=== PATIENT | male | born 1965 | race Caucasian/White ===

== ENCOUNTER 2020-01-14 21:40 | Inpatient (IN) | payer MEDICARE, MEDICAID ==
[~2020-01-14] VITALS: Ht 170.1 cm; Wt 91.4 kg
[2020-01-14 21:46] VITALS: BP 115/77
[2020-01-14 22:13] LABS: BASO % 0.4 % (0.0-1.0); EOS # 0.3 10*3/uL (0.0-0.4); EOS % 4.2 % (1.0-4.0); HEMATOCRIT 35.6 % (42.0-52.0); LYMPH # 2.1 10*3/uL (1.3-4.4); LYMPH % 25.3 % (27.0-41.0); MEAN CELL VOLUME 98.1 fl (80.0-94.0); MEAN CORPUSCULAR HGB 28.7 pg (27.0-31.0); MEAN CORPUSCULAR HGB CONC 29.2 g/dl (33.0-37.0); MEAN PLATELET VOLUME 10.6 fl (9.6-12.3); MONO # 0.8 10*3/uL (0.1-1.0); MONO % 9.6 % (3.0-9.0); NEUT # 4.9 10*3/uL (2.3-7.9); NEUT % 60.4 % (47.0-73.0); PLATELET COUNT AUTOMATED 247 10*3/uL (130-400); RED BLOOD COUNT 3.63 10*6/uL (4.50-5.90); RED CELL DISTRI WIDTH 13.4 % (0-14.5); WHITE BLOOD COUNT 8.1 10*3/uL (4.8-10.8)
[2020-01-14 22:23] LABS: INTERNATIONAL NORM RATIO 0.9 (2.0-3.5)
[2020-01-14 22:30] LABS: ALBUMIN 3.3 gm/dl (3.1-4.5); ALKALINE PHOSPHATASE 71 U/L (45-117); BUN 12 mg/dl (7-24); CHLORIDE 95 mmol/L (98-107); CREATININE 0.65 mg/dL (0.70-1.30); POTASSIUM 4.4 mmol/L (3.5-5.1); SGOT/AST 28 IU/L (3-35); SGPT/ALT 32 U/L (12-78); SODIUM 140 mmol/L (136-145); TOTAL PROTEIN 6.7 gm/dL (6.4-8.2)
[2020-01-14 22:33] LABS: TROPONIN I < 0.015 ng/ml (<0.045)
[2020-01-14 23:05] VITALS: BP 102/75
[2020-01-15] MEDS ORDERED: ABILIFY10 MG PO (01:02)
[2020-01-15] MEDS ORDERED: ATOMOXETINE HC100 MG PO (01:03)
[2020-01-15] MEDS ORDERED: LIPITOR20 MG PO (01:03)
[2020-01-15 01:04] LABS: ABG BASE EXCESS 14.6 mmol/L (-2.0-2.0); ARTERIAL BLOOD GAS PH 7.304 (7.35-7.45)
[2020-01-15] MEDS ORDERED: BUDESONIDE-FO10.2 G1 INH (01:04)
[2020-01-15] MEDS ORDERED: CELEXA40 MG PO (01:05)
[2020-01-15] MEDS ORDERED: FLONASE ALLERG9.9 ML NAS (01:06)
[2020-01-15] MEDS ORDERED: MELATONIN10 M1 PO (01:08)
[2020-01-15] MEDS ORDERED: TOPROL XL50 M1 PO (01:09)
[2020-01-15] MEDS ORDERED: MUCINEX1200 M1 PO (01:09)
[2020-01-15] MEDS ORDERED: SPIRIVA RESPIMAT4 GM INH (01:10)
[2020-01-15] MEDS ORDERED: TYLENOL325 M1 PO (01:12)
[2020-01-15 01:57] VITALS: BP 94/71
[2020-01-15 06:32] LABS: HEMATOCRIT 35.2 % (42.0-52.0); MEAN CELL VOLUME 97.8 fl (80.0-94.0); MEAN CORPUSCULAR HGB 28.6 pg (27.0-31.0); MEAN CORPUSCULAR HGB CONC 29.3 g/dl (33.0-37.0); MEAN PLATELET VOLUME 10.8 fl (9.6-12.3); PLATELET COUNT AUTOMATED 246 10*3/uL (130-400); RED CELL DISTRI WIDTH 13.6 % (0-14.5); WHITE BLOOD COUNT 6.3 10*3/uL (4.8-10.8)
[2020-01-15 07:01] LABS: BUN 12 mg/dl (7-24); CHLORIDE 92 mmol/L (98-107); CREATININE 0.74 mg/dL (0.70-1.30); POTASSIUM 4.4 mmol/L (3.5-5.1); SODIUM 137 mmol/L (136-145)
[2020-01-15 07:20] LABS: PLATELET SUFFICIENCY NORMAL (NORMAL); TOTAL CELLS COUNTED 100 #CELLS
[2020-01-15 08:00] VITALS: BP 100/67; BP 120/71
[2020-01-15 10:35] LABS: ABG BASE EXCESS 13.8 mmol/L (-2.0-2.0); ARTERIAL BLOOD GAS PH 7.346 (7.35-7.45)
[2020-01-15 12:00] VITALS: BP 120/83
[2020-01-15 16:00] VITALS: BP 121/66
[2020-01-15 20:00] VITALS: BP 100/44
[2020-01-16] VITALS: BP 90/56
[2020-01-16 06:07] LABS: BASO % 0.2 % (0.0-1.0); EOS % 0.3 % (1.0-4.0); LYMPH # 2.1 10*3/uL (1.3-4.4); LYMPH % 17.9 % (27.0-41.0); MEAN CELL VOLUME 98.8 fl (80.0-94.0); MEAN CORPUSCULAR HGB 28.2 pg (27.0-31.0); MEAN CORPUSCULAR HGB CONC 28.5 g/dl (33.0-37.0); MEAN PLATELET VOLUME 11.2 fl (9.6-12.3); MONO # 1.2 10*3/uL (0.1-1.0); MONO % 10.2 % (3.0-9.0); NEUT # 8.4 10*3/uL (2.3-7.9); PLATELET COUNT AUTOMATED 257 10*3/uL (130-400); RED BLOOD COUNT 3.44 10*6/uL (4.50-5.90); RED CELL DISTRI WIDTH 13.7 % (0-14.5); WHITE BLOOD COUNT 11.8 10*3/uL (4.8-10.8)
[2020-01-16 06:26] LABS: BUN 15 mg/dl (7-24); CHLORIDE 95 mmol/L (98-107); CREATININE 0.63 mg/dL (0.70-1.30); POTASSIUM 4.3 mmol/L (3.5-5.1); SODIUM 141 mmol/L (136-145)
[2020-01-16 10:22] LABS: ABG BASE EXCESS 15.7 mmol/L (-2.0-2.0); ARTERIAL BLOOD GAS PH 7.319 (7.35-7.45)
[2020-01-16] MEDS ORDERED: PREDNISONE10 MG PO (11:12)
[2020-01-16 12:00] VITALS: BP 125/75
== END 2020-01-16 13:22 | DRG 189 ==
LOC: ED 21:40 → EDHOLD 23:39 → 5E 23:39
PROVIDERS: Emergency Medicine; Family Medicine; Internal Medicine; Student in an Organized Health Care Education/Training Program; ADMIT Internal Medicine; ATTEND Internal Medicine
PROC: 5A09357 Assistance with Respiratory Ventilation, Less than 24 Consecutive Hours, Continuous Positive Airway Pressure (ICD-10-PCS; principal; 2020-01-16)
DX: J96.01 Acute respiratory failure with hypoxia (principal); J44.1 Chronic obstructive pulmonary disease with (acute) exacerbation; E44.0 Moderate protein-calorie malnutrition; E87.3 Alkalosis; F32.9 Major depressive disorder, single episode, unspecified; I10 Essential (primary) hypertension; Z20.828 Contact with and (suspected) exposure to other viral communicable diseases; D53.9 Nutritional anemia, unspecified; E87.8 Other disorders of electrolyte and fluid balance, not elsewhere classified; R73.9 Hyperglycemia, unspecified; J96.22 Acute and chronic respiratory failure with hypercapnia; E66.9 Obesity, unspecified; Z68.31 Body mass index [BMI] 31.0-31.9, adult; Z87.891 Personal history of nicotine dependence; Z82.49 Family history of ischemic heart disease and other diseases of the circulatory system; Z82.3 Family history of stroke; Z99.81 Dependence on supplemental oxygen; Z79.899 Other long term (current) drug therapy; J96.02 Acute respiratory failure with hypercapnia

== ENCOUNTER 2020-01-17 23:17 | Emergency (ER) | payer MEDICARE, MEDICAID ==
[~2020-01-17] VITALS: Ht 182.8 cm; Wt 102.5 kg
[~2020-01-17 23:17] MED LIST: ABILIFY10 MG PO; ATOMOXETINE HC100 MG PO; BUDESONIDE-FO10.2 G1 INH; CELEXA40 MG PO; FLONASE ALLERG9.9 ML NAS; LIPITOR20 MG PO; MELATONIN10 M1 PO; MUCINEX1200 M1 PO; PREDNISONE10 MG PO; SPIRIVA RESPIMAT4 GM INH; TOPROL XL50 M1 PO; TYLENOL325 M1 PO
== END 2020-01-18 02:18 | disposition other institution (70) ==
LOC: ED 23:17
DX: J44.9 Chronic obstructive pulmonary disease, unspecified (principal); Z87.891 Personal history of nicotine dependence; Z79.899 Other long term (current) drug therapy

== ENCOUNTER 2020-02-04 10:44 | Observation (INO) | payer MEDICARE, MEDICAID ==
[~2020-02-04] VITALS: Ht 180 cm; Wt 91.0 kg
[2020-02-04 10:55] VITALS: BP 113/75
[2020-02-04 11:24] LABS: BASO % 0.2 % (0.0-1.0); EOS # 0.1 10*3/uL (0.0-0.4); EOS % 0.6 % (1.0-4.0); HEMATOCRIT 34.7 % (42.0-52.0); LYMPH # 1.3 10*3/uL (1.3-4.4); LYMPH % 12.4 % (27.0-41.0); MEAN CELL VOLUME 99.4 fl (80.0-94.0); MEAN CORPUSCULAR HGB 28.7 pg (27.0-31.0); MEAN CORPUSCULAR HGB CONC 28.8 g/dl (33.0-37.0); MEAN PLATELET VOLUME 10.8 fl (9.6-12.3); MONO # 0.8 10*3/uL (0.1-1.0); MONO % 7.9 % (3.0-9.0); NEUT # 8.3 10*3/uL (2.3-7.9); NEUT % 78.7 % (47.0-73.0); PLATELET COUNT AUTOMATED 217 10*3/uL (130-400); RED BLOOD COUNT 3.49 10*6/uL (4.50-5.90); RED CELL DISTRI WIDTH 13.7 % (0-14.5); WHITE BLOOD COUNT 10.5 10*3/uL (4.8-10.8)
[2020-02-04 11:34] LABS: ACT PARTIAL THROMBO TIME 20.8 SECONDS (20.0-32.1); INTERNATIONAL NORM RATIO 0.9 (2.0-3.5)
[2020-02-04 11:40] LABS: ALBUMIN 3.1 gm/dl (3.1-4.5); ALKALINE PHOSPHATASE 80 U/L (45-117); BUN 17 mg/dl (7-24); CHLORIDE 95 mmol/L (98-107); CREATININE 0.78 mg/dL (0.70-1.30); POTASSIUM 4.3 mmol/L (3.5-5.1); SGOT/AST 17 IU/L (3-35); SGPT/ALT 22 U/L (12-78); SODIUM 140 mmol/L (136-145); TOTAL PROTEIN 6.8 gm/dL (6.4-8.2)
[2020-02-04 11:57] LABS: TROPONIN I < 0.015 ng/ml (<0.045)
[2020-02-04 12:04] LABS: ABG BASE EXCESS 16.6 mmol/L (-2.0-2.0); ARTERIAL BLOOD GAS PH 7.315 (7.35-7.45)
[2020-02-04 12:20] VITALS: BP 114/67
[2020-02-04 12:25] LABS: BILIRUBIN Negative (Negative); BLOOD Negative (Negative); CLARITY Clear (Clear); COLOR Yellow (Yellow); GLUCOSE Negative (Negative); KETONE Trace (Negative); LEUKO ESTERASE 1+ (Negative); NITRITE Negative (Negative); PH 7.5 (4.5-8.0); SPECIFIC GRAVITY >= 1.030 (1.001-1.030)
--- NOTE | 2020-02-04 12:30 | NUR ---
PT RETURNED FROM CT SCAN. CALLED TO PLACED PT ON BIPAP. PT PLACED ON BIPAP. TOLERATING WELL. RESPS REGULAR AND UNLABORED.
[2020-02-04 12:41] LABS: BACTERIA 2+; EPITHELIAL CELLS 0-2; WBC 16-20 wbc/hpf (0-5)
[2020-02-04 12:42] LABS: MUCOUS 2+
--- NOTE | 2020-02-04 15:15 | NUR ---
PT PLACED ON BIPAP AT THIS TIME. PT TOLERATING WELL. RESPS REGULAR AND UNLABORED. PARAMETERS: 15/5 40%. SPO2 96% HR 86 VST 850.
[2020-02-04 16:00] VITALS: BP 112/69
--- NOTE | 2020-02-04 16:02 | NUR ---
THE PATIENT REMOVED THE CARDIAC LEADS. WHEN I ASKED HIM WHY HE SAID "CAUSE I WANTED TOO." HE THEN POINTED TO THE BIPAP AND SAID "I'M READY TO TAKE THIS THING OFF TOO."
--- NOTE | 2020-02-04 16:07 | NUR ---
THE PATIENT DID REMOVE THE BIPAP. I INFORMED THE DOCTOR. HE DID ORDER A REPEAT BLOOD GAS.
--- NOTE | 2020-02-04 16:08 | NUR ---
A DINNER TRAY WAS ORDERED ON THE PATIENT
[2020-02-04 17:12] LABS: ARTERIAL BLOOD GAS PH 7.357 (7.35-7.45)
--- NOTE | 2020-02-04 18:00 | NUR ---
A 55, admitted to 5E, under the services of MARY ELLEN Ayala DO with a diagnosis of COPD EXACERBATION. Chief complaint is SOB. Patient arrived via bed from ER. Monitor applied. Initial assessment completed. Vital signs taken and recorded. MARY ELLEN AYALA DO notified of admission to the unit. Orders received. See assessment for past medical history, medications and allergies. Patient and/or family oriented to unit. [facility] visitation policy reviewed. Clothing/patient valuable form completed. CEE FARAH
--- NOTE | 2020-02-04 18:20 | NUR ---
DR. CHONG NOTIFIED OF CONSULT
--- NOTE | 2020-02-04 18:31 | NUR ---
PT REFUSING TO WEAR ADVANCED MANUFACTURING ENGINEER AND BIPAP AT THIS TIME. PT EDUCATED ON IMPORTANCE OF BIPAP AND STATES HE WILL WEAR IT TONIGHT TO SLEEP.
[2020-02-04 20:00] VITALS: BP 129/75
--- NOTE | 2020-02-04 20:59 | NUR ---
PATIENT STILL REFUSING HEALTHCARE CONSULTING MANAGER
[2020-02-05] VITALS: BP 119/69
--- NOTE | 2020-02-05 00:02 | NUR ---
Pt placed on BiPap 15/8 and 40%. Alarms on and audible.
--- NOTE | 2020-02-05 02:23 | NUR ---
PATIENT OFF BIPAP AT THIS TIME PER REQUEST AND PLACED ON NASAL CANNULA.
--- NOTE | 2020-02-05 05:21 | NUR ---
PATIENT PLACED BACK ON BIPAP AT THIS TIME
[2020-02-05 06:48] LABS: BASO % 0.1 % (0.0-1.0); HEMATOCRIT 34.3 % (42.0-52.0); LYMPH # 0.7 10*3/uL (1.3-4.4); LYMPH % 6.3 % (27.0-41.0); MEAN CELL VOLUME 99.4 fl (80.0-94.0); MEAN CORPUSCULAR HGB 28.7 pg (27.0-31.0); MEAN CORPUSCULAR HGB CONC 28.9 g/dl (33.0-37.0); MEAN PLATELET VOLUME 10.5 fl (9.6-12.3); MONO # 0.4 10*3/uL (0.1-1.0); MONO % 3.4 % (3.0-9.0); NEUT # 10.2 10*3/uL (2.3-7.9); NEUT % 89.8 % (47.0-73.0); PLATELET COUNT AUTOMATED 221 10*3/uL (130-400); RED BLOOD COUNT 3.45 10*6/uL (4.50-5.90); WHITE BLOOD COUNT 11.3 10*3/uL (4.8-10.8)
[2020-02-05 07:04] LABS: BUN 15 mg/dl (7-24); CHLORIDE 94 mmol/L (98-107); POTASSIUM 4.8 mmol/L (3.5-5.1); SODIUM 139 mmol/L (136-145)
[2020-02-05 08:00] VITALS: BP 134/76
[2020-02-05 08:43] LABS: ABG BASE EXCESS 15.1 mmol/L (-2.0-2.0); ARTERIAL BLOOD GAS PH 7.319 (7.35-7.45)
[2020-02-05 12:00] VITALS: BP 130/76
[2020-02-05 16:00] VITALS: BP 102/58
[2020-02-05 20:00] VITALS: BP 135/71
--- NOTE | 2020-02-05 20:06 | NUR ---
PT SEEN AND ASSESSED. PT AGREED TO WEAR MONITOR. MONITOR PLACED. HEP LOCK FLUSHED, SITE SECURED. NO CURRENT C/O AT THIS TIME.
--- NOTE | 2020-02-05 22:30 | NUR ---
REPIRATORY IN TO SEE PT TO START BIPAP. PT HAS NO C/O AT THIS TIME.
[2020-02-06] VITALS: BP 96/55
--- NOTE | 2020-02-06 00:45 | NUR ---
PT RESTING IN BED QUIETLY W/ EYES CLOSED. BIPAP REMAINS ON AT THIS TIME.
--- NOTE | 2020-02-06 01:54 | NUR ---
24 HR chart check completed.
--- NOTE | 2020-02-06 07:00 | NUR ---
BIPAP OFF PT. PLACED ON 4L NC
--- NOTE | 2020-02-06 07:14 | NUR ---
PHYSICAL THERAPY Screen and PT eval received will follow,thank you Tere Childers PT
[2020-02-06 08:00] VITALS: BP 102/56
--- NOTE | 2020-02-06 08:35 | NUR ---
PHYSICAL THERAPY Physical Therapy evaluation completed on 5th floor with full evaluation to follow. Recommend physical therapy per plan of care and return to NF/SNF upon discharge. Thank you for this referral. Tere Childers PT
[2020-02-06 08:53] LABS: BUN 18 mg/dl (7-24); CHLORIDE 95 mmol/L (98-107); CREATININE 0.91 mg/dL (0.70-1.30); POTASSIUM 4.3 mmol/L (3.5-5.1); SODIUM 136 mmol/L (136-145)
[2020-02-06 12:00] VITALS: BP 117/60
[2020-02-06 16:00] VITALS: BP 108/62
[2020-02-06 19:38] LABS: ABG BASE EXCESS 7.6 mmol/L (-2.0-2.0); ARTERIAL BLOOD GAS PH 7.248 (7.35-7.45)
--- NOTE | 2020-02-06 19:42 | NUR ---
DR TAY NOTIFIED OF PCO2 87
--- NOTE | 2020-02-06 19:45 | NUR ---
PATIENT AGREES TO BE PLACED ON BIPAP BY RESPIRATORY AT THIS TIME.
[2020-02-06 20:00] VITALS: BP 125/68
--- NOTE | 2020-02-06 22:26 | NUR ---
PATIENT REQUESTING TO HAVE BIPAP OFF FOR NOW, EDUCATED ON IMPORTANCE OF BIPAP USE, PATIENT JUST STARES & STATES TO COME BACK IN HALF AN HOUR.
--- NOTE | 2020-02-06 22:59 | NUR ---
PATIENT PLACED ON BIPAP
[2020-02-07] VITALS: BP 110/71
[2020-02-07 06:33] LABS: BUN 20 mg/dl (7-24); CHLORIDE 100 mmol/L (98-107); CREATININE 0.76 mg/dL (0.70-1.30); POTASSIUM 4.4 mmol/L (3.5-5.1); SODIUM 139 mmol/L (136-145)
[2020-02-07 07:44] LABS: ABG BASE EXCESS 7.4 mmol/L (-2.0-2.0); ARTERIAL BLOOD GAS PH 7.254 (7.35-7.45)
[2020-02-07 08:00] VITALS: BP 98/50
--- NOTE | 2020-02-07 09:32 | NUR ---
Patient is currently at [facility] and plans to return there upon discharge. He wears O2 @ 4L nc at the nursing facility. farm planner/social work program coordinator will follow for return to [facility].
--- NOTE | 2020-02-07 10:15 | NUR ---
IN TO SEE PATIENT.
[2020-02-07 12:00] VITALS: BP 112/69
--- NOTE | 2020-02-07 13:10 | NUR ---
IN TO SEE PATIENT.
--- NOTE | 2020-02-07 15:40 | NUR ---
PATIENT PLACED ON BIPAP PER RESPIRATORY. WILL MONITOR.
--- NOTE | 2020-02-07 15:41 | NUR ---
PATIENT PLACED ON BI-PAP 24/10, 40%. PULSE OX 98%.
[2020-02-07 16:00] VITALS: BP 102/52
--- NOTE | 2020-02-07 17:49 | NUR ---
NOTIFIED REGARDING LOSS OF IV ACCESS AND ALSO REGARDING MUTIPLE ATTEMPTS/ULTRASOUND. AWAITING PHYSICIAN ORDERS.
[2020-02-07 20:00] VITALS: BP 114/65
--- NOTE | 2020-02-07 20:30 | NUR ---
SPOKE WITH DR. PARIS PERTAINING TO EARLIER ATTEMPTS OF IV ACCESS BEING UNSUCCESSFUL. DR. PARIS STATED TO TRY AGAIN AND IF WE ARE UNABLE TO GET ONE, TO LET HIM KNOW.
--- NOTE | 2020-02-07 22:00 | NUR ---
PATIENT REMOVED BIPAP AND STATES HE WILL GO BACK ON IT LATER
--- NOTE | 2020-02-07 22:49 | NUR ---
ATTEMPTED X2 TO OBTAIN IV ACCESS WITH ULTRASOUND. UNSUCESSFUL.
--- NOTE | 2020-02-07 22:49 | NUR ---
STILL UNABLE TO GAIN IV ACCESS ON PATIENT DESPITE MULTIPLE MORE ATTEMPTS. DR. PARIS STATED THAT HE WILL PASS IT ON TO THE AM TEAM.
[2020-02-08] VITALS: BP 111/66
--- NOTE | 2020-02-08 00:08 | NUR ---
PATIENT PLACED BACK ON BIPAP AT THIS TIME
--- NOTE | 2020-02-08 01:26 | NUR ---
24 HR chart check completed.
--- NOTE | 2020-02-08 01:51 | NUR ---
PATIENT ASLEEP ON BIPAP. NO DISTRESS NOTED. CALL LIGHT WITHIN REACH
[2020-02-08 07:31] LABS: BASO % 0.2 % (0.0-1.0); EOS % 0.2 % (1.0-4.0); HEMATOCRIT 40.3 % (42.0-52.0); LYMPH # 2.4 10*3/uL (1.3-4.4); LYMPH % 23.4 % (27.0-41.0); MEAN CELL VOLUME 98.1 fl (80.0-94.0); MEAN CORPUSCULAR HGB 27.7 pg (27.0-31.0); MEAN CORPUSCULAR HGB CONC 28.3 g/dl (33.0-37.0); MEAN PLATELET VOLUME 11.7 fl (9.6-12.3); MONO # 1.1 10*3/uL (0.1-1.0); MONO % 11.3 % (3.0-9.0); NEUT # 6.5 10*3/uL (2.3-7.9); NEUT % 64.6 % (47.0-73.0); PLATELET COUNT AUTOMATED 197 10*3/uL (130-400); RED BLOOD COUNT 4.11 10*6/uL (4.50-5.90); RED CELL DISTRI WIDTH 13.8 % (0-14.5)
[2020-02-08 07:32] LABS: ABG BASE EXCESS 8.5 mmol/L (-2.0-2.0); ARTERIAL BLOOD GAS PH 7.244 (7.35-7.45)
[2020-02-08 07:48] LABS: BUN 24 mg/dl (7-24); CHLORIDE 102 mmol/L (98-107); CREATININE 0.71 mg/dL (0.70-1.30); SODIUM 137 mmol/L (136-145)
[2020-02-08 08:00] VITALS: BP 92/74
--- NOTE | 2020-02-08 08:14 | NUR ---
NOTIFIED OF ABG RESULTS. NEW ORDERS RECEIVED.
--- NOTE | 2020-02-08 08:19 | NUR ---
JORGE FROM RESPIRATORY NOTIFIED REGARDING NEW BIPAP SETTINGS: 02/01. REPEAT BLOOD GASES ORDERED PER .
--- NOTE | 2020-02-08 09:31 | NUR ---
PATIENT RESTING QUIETLY IN BED. BIPAP IN USE. WILL CONTINUE TO MONITOR. CALL LIGHT WITHIN REACH.
--- NOTE | 2020-02-08 10:04 | NUR ---
IN TO SEE PATIENT AND AWARE OF NO IV ACCESS.
[2020-02-08 11:35] LABS: ABG BASE EXCESS 10.4 mmol/L (-2.0-2.0); ARTERIAL BLOOD GAS PH 7.267 (7.35-7.45)
--- NOTE | 2020-02-08 11:39 | NUR ---
CRITICAL PCO2 OF 91 WAS RECIEVED, PER JORGE (RESPIRATORY THERAPIST) STATES HE WOULD CALL DR. CHONG.
--- NOTE | 2020-02-08 11:43 | NUR ---
DR. CHONG CALLED WITH CRITCAL PCO2. NEW ORDER GIVEN AND READ BACK TO REPEAT ABG AFTER 2HRS MORE HOURS ON BIPAP.
[2020-02-08 12:00] VITALS: BP 113/56
--- NOTE | 2020-02-08 14:42 | NUR ---
BIPAP IN USE. PATIENT TOLERATING WELL. WILL MONITOR.
[2020-02-08 15:38] LABS: ABG BASE EXCESS 10.2 mmol/L (-2.0-2.0); ARTERIAL BLOOD GAS PH 7.263 (7.35-7.45)
--- NOTE | 2020-02-08 15:49 | NUR ---
DR. CHONG CALLED WITH CRITICAL PCO2 ON ABG RESULTS. TO/RB TO INCREASE IPAP 30 AND REPEAT ABG IN 2HRS.
--- NOTE | 2020-02-08 15:55 | NUR ---
IPAP INCREASED TO 30 PER DRS ORDER
[2020-02-08 16:00] VITALS: BP 102/54
[2020-02-08 18:04] LABS: ABG BASE EXCESS 8.1 mmol/L (-2.0-2.0); ARTERIAL BLOOD GAS PH 7.265 (7.35-7.45)
--- NOTE | 2020-02-08 18:10 | NUR ---
CRITICAL ABG RESULTS CALLED TO DR. CHONG. T0/RB AM ABG 02/09/20 AT 0700.
[2020-02-08 20:00] VITALS: BP 128/73
--- NOTE | 2020-02-08 20:00 | NUR ---
Pt placed on BiPap 30/10 and FiO2 40%. Alarms on and audible.
[2020-02-09] VITALS: BP 97/64
--- NOTE | 2020-02-09 05:27 | NUR ---
24 HR chart check completed.
--- NOTE | 2020-02-09 06:34 | NUR ---
PATIENT TAKEN OFF BIPAP AT THIS TIME
[2020-02-09 06:42] LABS: BUN 20 mg/dl (7-24); CHLORIDE 98 mmol/L (98-107); CREATININE 0.68 mg/dL (0.70-1.30); POTASSIUM 3.6 mmol/L (3.5-5.1); SODIUM 138 mmol/L (136-145)
--- NOTE | 2020-02-09 06:46 | NUR ---
DR. PERES NOTIFIED OF PATIENTS CO2 LEVEL
[2020-02-09 07:39] LABS: ABG BASE EXCESS 12.7 mmol/L (-2.0-2.0); ARTERIAL BLOOD GAS PH 7.302 (7.35-7.45)
[2020-02-09 08:00] VITALS: BP 106/67
--- NOTE | 2020-02-09 08:50 | NUR ---
PATIENT IS SHORT TERM AT [facility]. PATIENT CAN RETURN WHEN MEDICALLY STABLE. NUCLEAR TECHNICIAN FAXED UPDATES TO [facility] FOR REVIEW.
--- NOTE | 2020-02-09 09:04 | NUR ---
DR. CUEVAS NOTIFIED OF CO2 LAB RESULT.
--- NOTE | 2020-02-09 10:23 | NUR ---
OT NOTE Attempted to see pt this A.M. for OT session and upon arrival pt was supine in bed with BIPAP on. Will check back at a later time/date and continue with POC as able. RAIZA Delatorre/Scott
--- NOTE | 2020-02-09 10:26 | NUR ---
PHYSICAL THERAPY Patient was on Bi-pap at 10:26 am. Will check back later with patient. LIZ HUSTON MACHINE CAPTAIN
--- NOTE | 2020-02-09 11:19 | NUR ---
Pt. off bipap, pt. request to leave off, states he needs a break, RN notified
[2020-02-09 12:00] VITALS: BP 122/70
--- NOTE | 2020-02-09 14:17 | NUR ---
OT NOTE Pt was seen this P.M. 1:1 for 15 minute OT session. Upon arrival pt was supine in bed. Pt identified by name and and had no complaints at this time. Pt presented to therapy with continuous 4L-O2 via NC which he remained on throughout the entire session. Pt transferred supine to sit EOB with SBA. While sitting EOB pt donned B socks with SBA. Sit to stand completed from bed level with CGA and use of w/w for UE support. Functional mobility completed to the bathroom with CGA and use of w/w. There he transferred on/off standard commode with CGA and use of grab bar for UE support. Functional mobility completed back out into the room with CGA and use of w/w. Throughout all mobility pt required constant verbal and tactile prompts for O2 line safety and navigation increasing risk of falls, pt presented with poor carry over. Pt tolerated aprox 4 minutes of activity before requesting to sit due to quick onset of fatigue. Pt's SpO2 dropped to 80% and within aprox 2 minutes SpO2 raised to 90%. Pt transferred sit to supine with SBA. There he was left with call light in hand, tray table in place, and phone in reach. Continue with rec D/C plan to return to SNF. RAIZA Delatorre/Scott
--- NOTE | 2020-02-09 14:23 | NUR ---
PHYSICAL THERAPY Patient presented to therapy in supine with head of bed elevated and bed alarm on. Patient is on 4 liters of spO2 VIA NASAL CANULA. Patient has no complaints. Patient gives informed consent for treatment. Patient was identified by name and on wristband. Patient performed supine <> sitting on EOB with SBA. Patient sat on EOB with SBA. Patient completed STS <> EOB with SBA. Patient ambulated 40' x 1 with Wh Walker and Close Supervision and assistance with O2 line management. Patient STS from low chair with SBA. Patient transferred sit EOB to Supine with SBA. Patient was left in supine in bed with head of bed elevated, call light within reach and bed alarm on. O2 SAT AT down to 72% and it climbed to 91% and pulse of 108. Patient was 1:1 with this UNIVERSITY RELATIONS VICE PRESIDENT for 15 minutes total. LIZ HUSTON UNIVERSITY RELATIONS VICE PRESIDENT
[2020-02-09 16:00] VITALS: BP 122/61
[2020-02-09 20:00] VITALS: BP 95/49
--- NOTE | 2020-02-09 21:00 | NUR ---
SLEEPING, AWAKENS EASILY. RESPIRATIONS EASY. LUNGS DIMINISHED WITH POOR AIR MOVEMENT. PULSE OX 97% 4L, TITRATED TO 3L. INFREQUENT COUGH. TRACE BLE EDEMA. CALL LIGHT WITHIN REACH. NO VOICED COMPLAINTS.
--- NOTE | 2020-02-09 22:00 | NUR ---
CASSIE HELD FOR BP 95/49
[2020-02-10] VITALS: BP 94/46
--- NOTE | 2020-02-10 | NUR ---
SLEEPING. NO ACUTE DISTRESS NOTED. RESPIRATIONS EASY. PULSE OX 99% BI-PAP. VSS. CALL LIGHT WITHIN REACH.
--- NOTE | 2020-02-10 02:25 | NUR ---
24 HR chart check completed.
--- NOTE | 2020-02-10 03:00 | NUR ---
PATIENT ON AND OFF BI-PAP
--- NOTE | 2020-02-10 03:30 | NUR ---
Pt kept taking off his Bipap. He kept asking for a break. Pt placed on 4L NC.
--- NOTE | 2020-02-10 05:00 | NUR ---
PLACED BACK ON BI-PAP.
--- NOTE | 2020-02-10 06:30 | NUR ---
SLEEPING WITH BIPAP IN USE AND NO DISTRESS NOTED.
[2020-02-10 06:44] LABS: BASO % 0.1 % (0.0-1.0); EOS # 0.1 10*3/uL (0.0-0.4); EOS % 0.5 % (1.0-4.0); HEMATOCRIT 32.5 % (42.0-52.0); LYMPH # 2.4 10*3/uL (1.3-4.4); LYMPH % 19.7 % (27.0-41.0); MEAN CELL VOLUME 97.9 fl (80.0-94.0); MEAN CORPUSCULAR HGB 28.9 pg (27.0-31.0); MEAN CORPUSCULAR HGB CONC 29.5 g/dl (33.0-37.0); MONO # 1.3 10*3/uL (0.1-1.0); MONO % 10.2 % (3.0-9.0); NEUT # 8.5 10*3/uL (2.3-7.9); NEUT % 69.1 % (47.0-73.0); PLATELET COUNT AUTOMATED 240 10*3/uL (130-400); RED BLOOD COUNT 3.32 10*6/uL (4.50-5.90); RED CELL DISTRI WIDTH 13.8 % (0-14.5); WHITE BLOOD COUNT 12.3 10*3/uL (4.8-10.8)
[2020-02-10 06:54] LABS: BUN 16 mg/dl (7-24); CHLORIDE 99 mmol/L (98-107); CREATININE 0.68 mg/dL (0.70-1.30); POTASSIUM 3.5 mmol/L (3.5-5.1); SODIUM 142 mmol/L (136-145)
--- NOTE | 2020-02-10 06:57 | NUR ---
PATIENT TAKEN OFF OF BI-PAP, PLACED ON 3 L/M.
--- NOTE | 2020-02-10 07:00 | NUR ---
CO2 CRITICAL BUT IMPROVING. PATIENT ON BI-PAP. CURRENTLY RECEIVING DIAMOX
[2020-02-10 08:00] VITALS: BP 108/68
--- NOTE | 2020-02-10 09:00 | NUR ---
patient is at [facility] for skilled care and rehab. he will return when discharged. case management/social media community manager will follow
[2020-02-10 09:17] LABS: ABG BASE EXCESS 9.6 mmol/L (-2.0-2.0); ARTERIAL BLOOD GAS PH 7.332 (7.35-7.45)
--- NOTE | 2020-02-10 09:53 | NUR ---
MAPPING PILOT FAXED UPDATES INCLUDING BIPAP SETTINGS TO [facility].
--- NOTE | 2020-02-10 10:20 | NUR ---
OT NOTE Pt was seen this A.M. 1:1 for 15 minute OT session. Upon arrival pt was supine in bed. Pt identified by name and and had no complaints at this time. Pt presented to therapy with continuous 3L-O2 via NC which he remained on throughout the entire session. Pt transferred supine to sit EOB with SBA. While sitting EOB pt reached for slippers that were under the bed with SBA and then donned B slippers with supervision. Sit to stand completed from bed level with SBA and use of w/w for UE support. Functional mobility completed to the bathroom and back around the room with SBA and use of w/w. Throughout pt required mod verbal prompts for safety with the O2 line to decrease risk of falls. Pt was able to tolerate aprox 4 minutes of activity before requesting to sit. Pt's dynamic standing balance was then challenged while weight shifting, crossing midline, and reaching over all planes. Pt was able to maintain F/F- standing balance throughout. Pt was left sitting upright in the recliner with call light in hand, tray table in place, and body alarm activated for safety. Continue with rec D/C plan to return to SNF. RAIZA Delatorre/Scott
--- NOTE | 2020-02-10 10:30 | NUR ---
PHYSICAL THERAPY Patient presented to therapy in supine with head of bed elevated and bed alrm on. Patient is on 4 liters of spO2 VIA NASAL CANULA. Patient gives informed consent for treatment. Patient was identified by name and on wristband. Patient completed supine to sitting at EOB with SBA. Patient sat on EOB with Supervision. Patient performed STS <> EOB with SBA. Patient ambulated with Wh Walker and Close Supervision for 38' x 1 with no LOB and no SOB. Patient managed the O2 hose very well and did not trip or become entangled in he line. Patient STS <> bedside chair with SBA. Patient declined LE ther ex for strengthening. Patient was left in bedside chair with call light within reach and chair alarm tested and attached to the patient. Patient was 1:1 with THIS CLINICAL EDUCATION COORDINATOR for 16 minuted total. LIZ HUSTON CLINICAL EDUCATION COORDINATOR
[2020-02-10] MEDS ORDERED: ACETAZOLAMIDE250 MG PO (11:13)
--- NOTE | 2020-02-10 11:36 | NUR ---
DOG BOARDER NOTIFIED OF PATIENT DISCHARGE. DOG BOARDER SPOKE WITH PATTI DIANE. DOG BOARDER CONTACTED AND ARRANGED [facility] TO TRANSPORT THE PATIENT AT 1PM TODAY. DOG BOARDER NOTIFIED RENE MURRAY, [facility], AND PATIENTS DAUGHTER YOAN. DOG BOARDER TO FAX DISCHARGE ORDERS TO [facility].
--- NOTE | 2020-02-10 13:10 | NUR ---
REPORT CALLED TO ORCHARDS
--- NOTE | 2020-02-10 13:10 | NUR ---
Discharge instructions reviewed with patient/family. Patient receptive and verbalizes understanding. Follow-up care arranged. Written instructions given to patient/family. VIBHA RAMAN
--- NOTE | 2020-02-11 07:45 | NUR ---
OCCUPATIONAL THERAPY CO-SIGN I approve of the Occupational Therapy notes written above. ALBERTA QUEZADA, OTR/L
--- NOTE | 2020-02-11 15:50 | NUR ---
PHYSICAL THERAPY CO-SIGN I approve of the Physical Therapy notes written above. Tere Childers PT
== END 2020-02-10 13:10 ==
LOC: ED 10:44 → 5E 13:38 → EDHOLD 13:38 → 5E 16:39
PROVIDERS: Emergency Medicine; Internal Medicine; Internal Medicine Critical Care Medicine; Student in an Organized Health Care Education/Training Program; ADMIT Internal Medicine; ATTEND Internal Medicine
DX: J44.1 Chronic obstructive pulmonary disease with (acute) exacerbation (principal); J96.22 Acute and chronic respiratory failure with hypercapnia; R55 Syncope and collapse; E87.8 Other disorders of electrolyte and fluid balance, not elsewhere classified; R06.89 Other abnormalities of breathing; E83.41 Hypermagnesemia; F32.9 Major depressive disorder, single episode, unspecified; I10 Essential (primary) hypertension; D53.9 Nutritional anemia, unspecified; Z99.81 Dependence on supplemental oxygen; E44.0 Moderate protein-calorie malnutrition

== ENCOUNTER 2020-03-01 22:30 | Inpatient (IN) | payer MEDICARE, MEDICAID ==
[~2020-03-01] VITALS: Ht 177.8 cm; Wt 88.9 kg
[~2020-03-01 22:30] MED LIST changes: +ACETAZOLAMIDE250 MG PO
[2020-03-01 22:41] VITALS: BP 148/75
[2020-03-01 22:42] VITALS: BP 105/36
[2020-03-01 22:56] LABS: BASO % 0.1 % (0.0-1.0); EOS % 0.3 % (1.0-4.0); HEMATOCRIT 37.6 % (42.0-52.0); LYMPH % 10.3 % (27.0-41.0); MEAN CELL VOLUME 96.9 fl (80.0-94.0); MEAN CORPUSCULAR HGB 27.8 pg (27.0-31.0); MEAN CORPUSCULAR HGB CONC 28.7 g/dl (33.0-37.0); MEAN PLATELET VOLUME 11.3 fl (9.6-12.3); MONO # 0.7 10*3/uL (0.1-1.0); MONO % 7.1 % (3.0-9.0); NEUT # 7.7 10*3/uL (2.3-7.9); NEUT % 81.9 % (47.0-73.0); PLATELET COUNT AUTOMATED 177 10*3/uL (130-400); RED BLOOD COUNT 3.88 10*6/uL (4.50-5.90); RED CELL DISTRI WIDTH 14.1 % (0-14.5); WHITE BLOOD COUNT 9.4 10*3/uL (4.8-10.8)
[2020-03-01 23:28] LABS: ALBUMIN 2.9 gm/dl (3.1-4.5); ALKALINE PHOSPHATASE 70 U/L (45-117); BUN 19 mg/dl (7-24); CHLORIDE 102 mmol/L (98-107); CREATININE 0.92 mg/dL (0.70-1.30); SGOT/AST 22 IU/L (3-35); SGPT/ALT 24 U/L (12-78); SODIUM 137 mmol/L (136-145); TOTAL PROTEIN 6.9 gm/dL (6.4-8.2)
[2020-03-01 23:56] VITALS: BP 132/80
[2020-03-02] VITALS (12 sets, daily range): BP systolic 68–140; BP diastolic 45–736
[2020-03-02 06:31] LABS: BILIRUBIN Negative (Negative); BLOOD Negative (Negative); CLARITY Clear (Clear); COLOR Yellow (Yellow); GLUCOSE Negative (Negative); KETONE Negative (Negative); LEUKO ESTERASE Negative (Negative); NITRITE Negative (Negative); SPECIFIC GRAVITY >= 1.030 (1.001-1.030)
[2020-03-02 06:49] LABS: BACTERIA 2+; COARSE GRANULAR CAST 16-20
[2020-03-02 09:35] LABS: ARTERIAL BLOOD GAS PH 7.209 (7.35-7.45)
--- NOTE | 2020-03-02 09:59 | NUR ---
VERBAL CONSENT FROM THE PATIENT TO SPEAK WITH HIS DAUGHTER GREGOR DURON. THE DAUGHTER WAS UPDATED OF HIS CONDITION.
--- NOTE | 2020-03-02 10:33 | NUR ---
VITALS WERE UPDATED. SCHEDULED MEDS GIVEN.
--- NOTE | 2020-03-02 11:05 | NUR ---
THE PATIENT WAS REPOSITION TO TRY AND HELP HIM BE MORE COMFORTABLE AND WAS GIVEN A DRINK OF WATER
[2020-03-02] MEDS ORDERED: ATROVENT HFA12.9 GM INH (11:25)
--- NOTE | 2020-03-02 11:40 | NUR ---
DR CHONG WAS NOTIFIED OF CONSULT.
--- NOTE | 2020-03-02 12:40 | NUR ---
NOTIFIED BY RN DR. CHONG CHANGED PTS BIPAP SETTINGS TO 02/01. RT TO REDRAW ABGS IN 2HRS
--- NOTE | 2020-03-02 14:35 | NUR ---
THE PATIENT WAS MOVED FROM ROOM ONE TO SEVEN DUE TO POSITIVE COVID
[2020-03-02 14:50] LABS: ABG BASE EXCESS 4.3 mmol/L (-2.0-2.0)
[2020-03-02 14:52] LABS: ARTERIAL BLOOD GAS PH 7.179 (7.35-7.45)
--- NOTE | 2020-03-02 15:10 | NUR ---
DR CHONG CALLED WITH CRITICAL ABG RESULTS. TO/RB TO INCREASE IPAP TO 30 AND REPEAT ABG IN 2HRS.
--- NOTE | 2020-03-02 15:14 | NUR ---
RESPIRATORY CALLED DR CHONG HE ADVISED CHANGE BIPAP SETTING TO 30/10 REPEAT THE BLOOD GAS IN 2 HOURS AND CALL HIM BACK
--- NOTE | 2020-03-02 15:15 | NUR ---
PER DRS ORDER: BIPAP SETTINGS CHANGED TO IPAP 30 EPAP 10 FIO2 .40 REPEAT ABG IN 2HRS
--- NOTE | 2020-03-02 15:39 | NUR ---
DR CASTILLO WAS CONSULTED PER ORDER
[2020-03-02 17:55] LABS: ABG BASE EXCESS 3.9 mmol/L (-2.0-2.0)
[2020-03-02 17:56] LABS: ARTERIAL BLOOD GAS PH 7.159 (7.35-7.45)
--- NOTE | 2020-03-02 18:04 | NUR ---
I SPOKE WITH THE DAUGHTER AN UPDATED HER ON THE PATIENT. I WENT INTO THE ROOM TO LET THE PATIENT KNOW THAT HIS DAUGHTER HOW BEEN CALLING. SHE WANTED ME TO LET HIM KNOW THAT.
--- NOTE | 2020-03-02 18:14 | NUR ---
DR CHONG CALLED WITH CRITICAL ABGS. TO/RB TO INTUBATE PT. VENT SETTINGS AC 18 TV 600 FIO2 .40 PEEP 5.
--- NOTE | 2020-03-02 19:18 | NUR ---
INTUBATION BY YIFAN ISLAS. 8.0CM TUBE AT 24 AT THE TEETH. 600ML, FIO2 40%, RATE 18, PEEP 5, PEAK PRESSURE 45-50. MV 11.1
--- NOTE | 2020-03-02 20:24 | NUR ---
DR CHONG CONSULTED
[2020-03-02 21:14] LABS: ABG BASE EXCESS 4.8 mmol/L (-2.0-2.0); ARTERIAL BLOOD GAS PH 7.311 (7.35-7.45)
--- NOTE | 2020-03-02 22:45 | NUR ---
CONSULTED DR. CHONG IN REGARDS TO HYPOTENSION. ORDERS TO PROCEED WITH NOREPINEPHRINE.
--- NOTE | 2020-03-02 23:00 | NUR ---
ADDI DEAL AND SCD DEVICES APPLIED
[2020-03-03] VITALS (77 sets, daily range): BP systolic 91–138; BP diastolic 54–79
[2020-03-03 06:07] LABS: ALBUMIN 2.6 gm/dl (3.1-4.5); CREATININE 1.68 mg/dL (0.70-1.30); POTASSIUM 4.5 mmol/L (3.5-5.1); TOTAL PROTEIN 6.3 gm/dL (6.4-8.2)
[2020-03-03 06:22] LABS: LYMPH # 0.5 10*3/uL (1.3-4.4); LYMPH % 7.4 % (27.0-41.0); MEAN CELL VOLUME 95.5 fl (80.0-94.0); MEAN CORPUSCULAR HGB 27.8 pg (27.0-31.0); MEAN CORPUSCULAR HGB CONC 29.1 g/dl (33.0-37.0); MEAN PLATELET VOLUME 11.6 fl (9.6-12.3); MONO # 0.7 10*3/uL (0.1-1.0); MONO % 10.7 % (3.0-9.0); NEUT # 5.3 10*3/uL (2.3-7.9); NEUT % 81.6 % (47.0-73.0); PLATELET COUNT AUTOMATED 169 10*3/uL (130-400); RED BLOOD COUNT 3.56 10*6/uL (4.50-5.90); WHITE BLOOD COUNT 6.5 10*3/uL (4.8-10.8)
--- NOTE | 2020-03-03 07:54 | NUR ---
NEW BOTTLE OF DIPRIVAN STARTED
--- NOTE | 2020-03-03 07:54 | NUR ---
PATIENT PRESENTS FROM [facility] SHORT TERM.
[2020-03-03 08:32] LABS: ABG BASE EXCESS 6.8 mmol/L (-2.0-2.0); ARTERIAL BLOOD GAS PH 7.41 (7.35-7.45)
--- NOTE | 2020-03-03 08:36 | NUR ---
B/P 91/55, INCREASED LEVOPHED 6MCG/MIN
--- NOTE | 2020-03-03 08:57 | NUR ---
[employer] PILOT FAXED UPDATES TO [facility]. PATIENT CAN RETURN TO [facility] WHEN MEDICALLY STABLE.
--- NOTE | 2020-03-03 11:26 | NUR ---
PHYSICAL THERAPY PT evaluation received and chart reviewed. Patient intubated and not appropriate for skilled PT evaluation at this time. Discharge PT orders. Recommend new PT orders when medically appropriate. Thank you. Yulissa Mi,PT,DPT
--- NOTE | 2020-03-03 11:29 | NUR ---
OT NOTE Occupational therapy order received and chart reviewed. Patient is currently on a vent. No further OT indicated at this time. Will discharge orders. Thank you. Sherine Romo, OTR/L
--- NOTE | 2020-03-03 15:25 | NUR ---
BOTTLE #3 DIPRIVAN 1000MG/100ML RUNNING AT 45MCG/MIN
--- NOTE | 2020-03-03 18:40 | NUR ---
#4 BOTTLE OF DIPRIVAN CONTINUED 1000ML/100ML RUNNING AT 45MCG/MIN
--- NOTE | 2020-03-03 18:41 | NUR ---
INCREASED LEVOPHED 7MCG/MIN
--- NOTE | 2020-03-03 20:39 | NUR ---
RIGHT EJ CENTRAL LINE PLACED BY YIFAN WODOALL. MOUTH CARE PROVIDED, ET TUBE SUCTIONED AT THIS TIME WELL MOUTH. CHANGED BEDDING AT THIS TIME. REPOSITIONED AT THIS TIME.
[2020-03-04] VITALS (64 sets, daily range): BP systolic 85–141; BP diastolic 44–78
[2020-03-04 06:08] LABS: ALBUMIN 2.3 gm/dl (3.1-4.5); CREATININE 2.39 mg/dL (0.70-1.30); POTASSIUM 3.7 mmol/L (3.5-5.1); TOTAL PROTEIN 5.8 gm/dL (6.4-8.2)
[2020-03-04 07:20] LABS: ABG BASE EXCESS 5.5 mmol/L (-2.0-2.0); ARTERIAL BLOOD GAS PH 7.362 (7.35-7.45)
--- NOTE | 2020-03-04 07:46 | NUR ---
INCREASED CARDIZEM 12MCG, HR 138, INCREASED LEVOPHED 9MCG/MIN. B/P 89/50.
--- NOTE | 2020-03-04 08:23 | NUR ---
SPOKE TO . ADVISED PT HR 145, B/P 89/50.
--- NOTE | 2020-03-04 09:08 | NUR ---
INCREASED CARDIZEM DRIP TO 12MCG. HR 150.
--- NOTE | 2020-03-04 12:03 | NUR ---
SPOKE TO DAUGHTER KIMBERLEY DURON VIA PHONE. PT UPDATED AND REQUESTING FOR DOCTOR TO CONTACT WITH AN UPDATE SOON POSSIBLE.
--- NOTE | 2020-03-04 13:53 | NUR ---
SPOKE TO DR BOWMAN. ADVISED TO CONTINUE MONITORING PT. REPORT ANY EMERGENT CONCERNS. HR 83 NSR AT THIS TIME. CARDIZEM STOPPED. PT CONITINUES TO BE HYPOTENSIVE 85/55. DR. BOWMAN WILL BE IN TO SEE PT.
--- NOTE | 2020-03-04 14:12 | NUR ---
INCREASED LEVOPHED TO 14MCG/MIN. B/P 84/55
--- NOTE | 2020-03-04 17:57 | NUR ---
A 55, admitted to [facility], under the services of MARY ELLEN Ayala DO with a diagnosis of COVID 19 / PNEUMONIA. Chief complaint is ACUTE RESP. FAILURE. Patient arrived via bed from ER. Monitor applied. Initial assessment completed. Vital signs taken and recorded. MARY ELLEN AYALA DO notified of admission to the unit. Orders received. See assessment for past medical history, medications and allergies. Patient and/or family oriented to unit. [facility] visitation policy reviewed. Clothing/patient valuable form completed. SOLOMON
[2020-03-04] MEDS ORDERED: ACETAZOLAMIDE250 MG PO (18:04)
--- NOTE | 2020-03-04 18:36 | NUR ---
DR CHRISTIAN CALLED IN REGARDING PT. UPDATED HIM ON PT'S CONDITION AND I/O. NEW ORDERS RECEIVED.
[2020-03-04 22:43] LABS: BILIRUBIN Negative (Negative); BLOOD Negative (Negative); CLARITY Turbid (Clear); COLOR Yellow (Yellow); GLUCOSE Trace (Negative); KETONE Negative (Negative); LEUKO ESTERASE Negative (Negative); NITRITE Negative (Negative); SPECIFIC GRAVITY 1.015 (1.001-1.030); UROBILINOGEN 0.2 E.U./dl (0.0-1.0)
--- NOTE | 2020-03-04 22:45 | NUR ---
PT RESTING. VSS. WILL CONTINUE TO MONITOR PT.
[2020-03-04 23:05] LABS: URIC ACID CRYSTALS 2+; URINE CHLORIDE, RANDOM < 10 mmol/L
--- NOTE | 2020-03-04 23:19 | NUR ---
CONTINUING TO TITRATE IV LEVOPHED GTT FOR MAP OF 75. PT SINUS DEE 59 W/ FREQUENT PAC'S. WILL CONTINUE TO MONITOR PT.
[2020-03-05] VITALS (93 sets, daily range): BP systolic 86–146; BP diastolic 51–81
--- NOTE | 2020-03-05 00:26 | NUR ---
IV VERSED GIVEN PER PRN ORDER FOR PT'S INCREASED AGITATION.
--- NOTE | 2020-03-05 00:35 | NUR ---
PT RESTING. EARLIER VERSED EFFECTIVE.
--- NOTE | 2020-03-05 05:57 | NUR ---
PT RESTING. NO ACUTE DISTRESS NOTED.
[2020-03-05 06:12] LABS: ALBUMIN 2.1 gm/dl (3.1-4.5); CREATININE 1.93 mg/dL (0.70-1.30); POTASSIUM 4.2 mmol/L (3.5-5.1)
[2020-03-05 07:02] LABS: HEMATOCRIT 26.4 % (42.0-52.0); MEAN CORPUSCULAR HGB 28.3 pg (27.0-31.0); MEAN CORPUSCULAR HGB CONC 31.1 g/dl (33.0-37.0); MEAN PLATELET VOLUME 12.2 fl (9.6-12.3); PLATELET COUNT AUTOMATED 144 10*3/uL (130-400); RED CELL DISTRI WIDTH 14.6 % (0-14.5); WHITE BLOOD COUNT 9.7 10*3/uL (4.8-10.8)
--- NOTE | 2020-03-05 07:08 | NUR ---
PT PLACED ON SURESH GGER FOR RECTAL TEMP OF 97.
[2020-03-05 08:30] LABS: ABG BASE EXCESS 1.8 mmol/L (-2.0-2.0); ARTERIAL BLOOD GAS PH 7.355 (7.35-7.45)
[2020-03-05 08:43] LABS: PLATELET SUFFICIENCY NORMAL (NORMAL); TOTAL CELLS COUNTED 100 #CELLS
--- NOTE | 2020-03-05 11:48 | NUR ---
SEDATION VACATION FROM DIPROVAN FOR APPROX 10+ MINUTES. OPENS EYES BUT DOESN'T FOLLOW COMMAND TO SQUEEZE HANDS. BILAT HAND EDEMA NOTED. BEAR HUGGAR OFF DUE TO RECTAL TEMP 99.1. REPOSITIONED Q2 HOURS PER ORDERS. TOLERATING TF AT THIS TIME. TITRATING LEVOPHED AND DIPROVAN CLIENT TOLERATES THEM
--- NOTE | 2020-03-05 11:56 | NUR ---
DR ORO HERE TO SEE CLIENT
[2020-03-05 12:28] LABS: ABG BASE EXCESS 1.1 mmol/L (-2.0-2.0); ARTERIAL BLOOD GAS PH 7.291 (7.35-7.45)
--- NOTE | 2020-03-05 14:52 | NUR ---
SPOKE WITH DR CUEVAS ABOUT SINUS TACH 120'S.. REQUESTED TO CALL CARDIOLOGY ABOUT HEART RATE
--- NOTE | 2020-03-05 14:56 | NUR ---
CALLED DR CONLEY ANSWERING SERVICE CONCERNING ELEVATED HEART RATE. AWAITING CALL BACK.
--- NOTE | 2020-03-05 15:03 | NUR ---
DR BOWMAN HERE. ORDERS TO GIVE 0.5 OF DIG IV NOW AND REPEAT WITH 0.25 Q 6 HOURS TIMES 2 RECIEVED.
[2020-03-05 15:22] LABS: ABG BASE EXCESS 1.4 mmol/L (-2.0-2.0); ARTERIAL BLOOD GAS PH 7.303 (7.35-7.45)
--- NOTE | 2020-03-05 15:38 | NUR ---
DIGOXIN EFFECTIVE AT THIS TIME.
--- NOTE | 2020-03-05 15:59 | NUR ---
UPDATED DR CHRISTIAN UPDATED ON CLIENT CONDITION. NO NEW ORDERS AT THIS TIME.
--- NOTE | 2020-03-05 20:55 | NUR ---
Patient tolerating vent, does occasionally open eyes. Patients levophed titrated down to 4mcg. All vital signs stable at this time.
--- NOTE | 2020-03-05 21:51 | NUR ---
24 HR chart check completed.
[2020-03-06] VITALS (46 sets, daily range): BP systolic 90–166; BP diastolic 7–75
[2020-03-06 06:07] LABS: CREATININE 1.8 mg/dL (0.70-1.30); POTASSIUM 4.6 mmol/L (3.5-5.1)
[2020-03-06 06:14] LABS: HEMATOCRIT 25.9 % (42.0-52.0); MEAN CELL VOLUME 89.9 fl (80.0-94.0); MEAN CORPUSCULAR HGB 27.4 pg (27.0-31.0); MEAN CORPUSCULAR HGB CONC 30.5 g/dl (33.0-37.0); MEAN PLATELET VOLUME 12.7 fl (9.6-12.3); PLATELET COUNT AUTOMATED 161 10*3/uL (130-400); RED BLOOD COUNT 2.88 10*6/uL (4.50-5.90); RED CELL DISTRI WIDTH 14.6 % (0-14.5)
[2020-03-06 07:44] LABS: ABG BASE EXCESS 3.1 mmol/L (-2.0-2.0); ARTERIAL BLOOD GAS PH 7.352 (7.35-7.45)
[2020-03-06 08:18] LABS: PLATELET SUFFICIENCY NORMAL (NORMAL); TOTAL CELLS COUNTED 100 #CELLS
--- NOTE | 2020-03-06 09:00 | NUR ---
SEDATION VACATION-PT AROUSES IN 15 MINS, OPEN EYES, LOOKS TOWARD STAFF AND NODS HEAD IN RESPONSE TO QUESTIONS, FOLLOWS SIMPLE COMMANDS
--- NOTE | 2020-03-06 10:55 | NUR ---
levphed titrated off
--- NOTE | 2020-03-06 16:46 | NUR ---
SEDATION TURNED OFF EXPLANATIONS GIVEN UNABLE TO PLACE NGT ,IT MEETS WITH AN OBSTRUCTION IN BOTH NARES, DR CHONG AWARE OK TO LEAVE OGT IN IF PT IS ABLE TO BE EXTUBATED
--- NOTE | 2020-03-06 17:32 | NUR ---
ON CPAP TOLERTAING WELL
--- NOTE | 2020-03-06 17:34 | NUR ---
FIO2 INCREASED TO 40%
--- NOTE | 2020-03-06 19:46 | NUR ---
PT AWAKE, RELAXED. RESP HERE TO OBTAIN ABG'S. VSS.
[2020-03-06 20:01] LABS: ABG BASE EXCESS 1.7 mmol/L (-2.0-2.0)
[2020-03-06 20:04] LABS: ARTERIAL BLOOD GAS PH 7.177 (7.35-7.45)
--- NOTE | 2020-03-06 20:43 | NUR ---
DR CHONG WAS NOTIFIED OF ABG'S BY RADHA (RESP DEPT) AND HE IS MAKING CHANGES.
[2020-03-06 22:01] LABS: ABG BASE EXCESS 3.1 mmol/L (-2.0-2.0); ARTERIAL BLOOD GAS PH 7.265 (7.35-7.45)
--- NOTE | 2020-03-06 23:36 | NUR ---
PT HAD VERY SMALL SOFT MUSHY STOOL ON BEDPAN. PM CARE DONE. PT REMAINS AWAKE, ALERT AND COOPERATIVE.
--- NOTE | 2020-03-06 23:40 | NUR ---
PT HAD VERY LG BROWN STOOL ON BEDPAN.
[2020-03-07] VITALS (7 sets, daily range): BP systolic 90–146; BP diastolic 59–78
--- NOTE | 2020-03-07 04:49 | NUR ---
PT'S VENT KICKED OVER TO AC MODE WHILE HE SLEEPS. RESP DEPT HERE AND AWARE. PT CONTINUES TO AWAKE EASILY AND REMAINS APPROPRIATE AND COOPERATIVE.
[2020-03-07 06:22] LABS: ALBUMIN 2.1 gm/dl (3.1-4.5); CREATININE 1.62 mg/dL (0.70-1.30); POTASSIUM 4.7 mmol/L (3.5-5.1); TOTAL PROTEIN 6.6 gm/dL (6.4-8.2)
[2020-03-07 07:27] LABS: HEMATOCRIT 30.6 % (42.0-52.0); MEAN CELL VOLUME 92.4 fl (80.0-94.0); MEAN CORPUSCULAR HGB 27.8 pg (27.0-31.0); MEAN CORPUSCULAR HGB CONC 30.1 g/dl (33.0-37.0); MEAN PLATELET VOLUME 12.4 fl (9.6-12.3); RED BLOOD COUNT 3.31 10*6/uL (4.50-5.90); RED CELL DISTRI WIDTH 14.8 % (0-14.5); WHITE BLOOD COUNT 12.7 10*3/uL (4.8-10.8)
--- NOTE | 2020-03-07 07:28 | NUR ---
Shift chart check completed.24 HR chart check completed.
[2020-03-07 07:41] LABS: PLATELET COUNT AUTOMATED 214 10*3/uL (130-400)
[2020-03-07 08:51] LABS: ABG BASE EXCESS 3.9 mmol/L (-2.0-2.0); ARTERIAL BLOOD GAS PH 7.297 (7.35-7.45)
[2020-03-07 09:20] LABS: PLATELET SUFFICIENCY NORMAL (NORMAL); TOTAL CELLS COUNTED 100 #CELLS
--- NOTE | 2020-03-07 09:40 | NUR ---
ON ASSESSMENT THIS AM PATIENT ALERT, FOLLOWING COMMANDS. HE REMAINS ORALLY INTUBATED, A/C MODE. SOFT RESTRAINTS IN PLACE TO MAINTAIN INTUBATION. RIJ MLC INTACT, HEP LOCKS RAN/KENYA. RR ARTERIAL LINE INTACT. MCKEON PATENT DEREK URINE. REPOSITIONED FOR COMFORT. ORAL CARE DONE. SEE ALL APPROPRIATE INTERVENTIONS.
[2020-03-07 15:28] LABS: ACT PARTIAL THROMBO TIME 22.1 SECONDS (20.0-32.1); INTERNATIONAL NORM RATIO 0.9 (2.0-3.5)
--- NOTE | 2020-03-07 16:25 | NUR ---
DR CHONG HAS VISITED. PT HAS BEEN ON CPAP/PS SINCE AROUND 2PM. HIS VENTILATOR SWITCHED TO APNEA VENTILATION X 1. RESPIRATORY HAS ADJUSTED APNEA TIME AND PT HAS REMAINED ON CPAP, COMFORTABLE WITHOUT SEDATION. ART LINE WAVEFORM IS DAMP. AUTO BP CUFF HAS BP 90/59. PULMOCARE CONTINUES AT 30ML/HR. SEE ALL APPROPRIATE INTERVENTIONS.
[2020-03-07 16:50] LABS: ABG BASE EXCESS 4.5 mmol/L (-2.0-2.0); ARTERIAL BLOOD GAS PH 7.374 (7.35-7.45)
--- NOTE | 2020-03-07 18:35 | NUR ---
EXTUBATED. PLACED ON BIPAP 26/10, FIO2 40% AND TITRATED UP TO 60% PER RESPIRATORY. PT TOLEARTED WELL. OGT LEFT IN PLACE AND TAPED TO CHEEK AT 55CM AL[place]AS. RESTRAINTS REMOVED.
--- NOTE | 2020-03-07 19:32 | NUR ---
24 HR chart check completed.
[2020-03-07 21:14] LABS: ABG BASE EXCESS 4.8 mmol/L (-2.0-2.0); ARTERIAL BLOOD GAS PH 7.298 (7.35-7.45)
[2020-03-08] VITALS: BP 112/62
--- NOTE | 2020-03-08 00:16 | NUR ---
Patient tolerating bipap well. Does request drinks very often. Mouth is being swabbed. Patient has no complaints at this time. Will continue to monitor.
[2020-03-08 04:00] VITALS: BP 107/60
[2020-03-08 05:27] LABS: CREATININE 1.58 mg/dL (0.70-1.30); POTASSIUM 4.4 mmol/L (3.5-5.1); TOTAL PROTEIN 6.2 gm/dL (6.4-8.2)
[2020-03-08 06:24] LABS: HEMATOCRIT 30.5 % (42.0-52.0); MEAN CELL VOLUME 91.9 fl (80.0-94.0); MEAN CORPUSCULAR HGB 27.1 pg (27.0-31.0); MEAN CORPUSCULAR HGB CONC 29.5 g/dl (33.0-37.0); MEAN PLATELET VOLUME 12.1 fl (9.6-12.3); NUCLEATED RED BLOOD CELL 0.2 % (0.0-0.0); RED BLOOD COUNT 3.32 10*6/uL (4.50-5.90); RED CELL DISTRI WIDTH 14.9 % (0-14.5); WHITE BLOOD COUNT 9.8 10*3/uL (4.8-10.8)
[2020-03-08 06:30] LABS: PLATELET COUNT AUTOMATED 295 10*3/uL (130-400)
[2020-03-08 07:35] LABS: ATYPICAL LYMPHS 3 % (0-0); PLATELET SUFFICIENCY NORMAL (NORMAL); POLYCHROMASIA SLIGHT; SCHISTOCYTES FEW; STOMATOCYTE FEW; TOTAL CELLS COUNTED 100 #CELLS
[2020-03-08 07:36] LABS: TARGET CELLS FEW
[2020-03-08 07:37] LABS: ACT PARTIAL THROMBO TIME 53.2 SECONDS (20.0-32.1)
[2020-03-08 08:00] VITALS: BP 131/72
[2020-03-08 09:07] LABS: ARTERIAL BLOOD GAS PH 7.293 (7.35-7.45)
--- NOTE | 2020-03-08 09:51 | NUR ---
NUTRITIONAL SERVICES DIRECTOR FAXED UPDATES TO [facility] FOR REVIEW.
--- NOTE | 2020-03-08 09:53 | NUR ---
AWAKE, ALERT, DISORIENTED TO TIME AND PLACE BUT FOLLOWS COMMANDS MOVES ALL EXTREMETIES EQUALLY, VERY WAK, ARM MOVEMENT ENCOURGED, DRSG TO RIJ CHANGED
[2020-03-08 12:00] VITALS: BP 130/71
--- NOTE | 2020-03-08 12:00 | NUR ---
OGT REMOVED ART LINE REMOVED PER POLICY-PRESSURE DRSG APPLIED
[2020-03-08 16:00] VITALS: BP 150/92
[2020-03-08 20:00] VITALS: BP 108/64; BP 111/75
--- NOTE | 2020-03-08 20:00 | NUR ---
PULSE OX 80% ON BIPAP. GOOD PLETH ON PULSE OX. STRIP RECORDED & PLACED ON CHART. PT IN NO DISTRESS. RESP DEPT AND DR ZUNIGA NOTIFIED. WHEN PT WAS AWAKENED, HIS PULSE OX WENT BACK UP INTO THE LOW 90'S.
--- NOTE | 2020-03-08 22:21 | NUR ---
DR CHONG NOTIFIED OF EARLIER EVENT AND THAT PT REMAINS TELE STATUS. PT REMAINS WITHOUT DISTRESS OR HYPOXIA AT THIS TIME. WILL CONTINUE TO MONITOR.
--- NOTE | 2020-03-08 23:43 | NUR ---
INCONTINENT OF LG AMT LIQUID STOOL. COMPLETE BATH AND BED LINEN CHANGE DONE.
[2020-03-09] VITALS (13 sets, daily range): BP systolic 66–154; BP diastolic 39–84
[2020-03-09 06:23] LABS: HEMATOCRIT 31.6 % (42.0-52.0); MEAN CELL VOLUME 94.9 fl (80.0-94.0); MEAN CORPUSCULAR HGB CONC 28.5 g/dl (33.0-37.0); MEAN PLATELET VOLUME 12.3 fl (9.6-12.3); PLATELET COUNT AUTOMATED 353 10*3/uL (130-400); RED BLOOD COUNT 3.33 10*6/uL (4.50-5.90); WHITE BLOOD COUNT 9.7 10*3/uL (4.8-10.8)
--- NOTE | 2020-03-09 06:41 | NUR ---
HEPARIN GTT OFF PER PROTOCOL FOR PTT 122.4.
[2020-03-09 07:17] LABS: ATYPICAL LYMPHS 3 % (0-0); PLASMA CELL 1 % (0-0); TOTAL CELLS COUNTED 100 #CELLS
[2020-03-09 07:18] LABS: OVALOCYTES FEW; PLATELET SUFFICIENCY NORMAL (NORMAL); POLYCHROMASIA SLIGHT
--- NOTE | 2020-03-09 07:36 | NUR ---
Shift chart check completed.24 HR chart check completed.
--- NOTE | 2020-03-09 09:46 | NUR ---
ON ASSESSMENT PATIENT ALERT, ABLE TO TELL ME HE IS IN "[facility] FOR COPD". HE'S VERY WEAK, BUT MOVING ALL EXTREMITIES. HE'S ABLE TO EAT AND DRINK, TAKES PILLS WHOLE WITHOUT DIFFICULTY. RIJ MLC INTACT. AT 0740 HIS HEPARIN DRIP RESTARTED AT 15UNITS/KG/MIN OR 1350UNITS/HR. MCKEON CATH PATENT CLEAR DEREK URINE. IV SITE REMOVED LEFT ANTECUBITAL. ADDI'S/SCD'S IN PLACE. PT FED HIS BREAKFAST. SEE ALL APPROPRIATE INTERVENTIONS.
--- NOTE | 2020-03-09 09:53 | NUR ---
PT TRANSFERRED IN STABLE CONDITION TO [facility] WITH ALL OF HIS BELONGINGS. PLACED ON TELEMETRY.
[2020-03-09 10:03] LABS: ALBUMIN 2.2 gm/dl (3.1-4.5); ALKALINE PHOSPHATASE 59 U/L (45-117); CHLORIDE 107 mmol/L (98-107); CREATININE 1.28 mg/dL (0.70-1.30); POTASSIUM 4.5 mmol/L (3.5-5.1); SGOT/AST 35 IU/L (3-35); SGPT/ALT 44 U/L (12-78); SODIUM 150 mmol/L (136-145); TOTAL PROTEIN 6.2 gm/dL (6.4-8.2)
[2020-03-09 10:15] LABS: BUN 56 mg/dl (7-24)
--- NOTE | 2020-03-09 10:22 | NUR ---
DR RODRÍGUEZ NOTIFIED OF CRITICAL CO2 OF 41. NO NEW ORDERS.
--- NOTE | 2020-03-09 11:45 | NUR ---
PHARMACIST KEYONA CHAPMAN STATES REMDESEVIR DOSE UNAVAILABLE AT THIS TIME BUT SHIPMENT SHOULD BE IN LATER TODAY.
--- NOTE | 2020-03-09 11:55 | NUR ---
OT NOTE Occupational therapy order received, chart reviewed, and attempted to see patient at bedside. RN and respiratory gave approval to see the patient for an OT evaluation. Patient was on the BiPap at 95% SpO2. Patient was minimally responsive to simple commands throughout attempt to see patient. He was unable to demonstrate AROM of any extremity, complete yes/no head nods for simple orientation questions, or verbalize. He was able to squeeze his hand with 2/4 trials. Patient is not appropriate for a complete OT evaluation at this time. Patient was repositioned in bed with wedges for proper positioning. Nursing staff made aware of patient's functional status. Will check back at a later date for completion of an OT evaluation. Thank you. Sherine Romo OTR/L
--- NOTE | 2020-03-09 13:04 | NUR ---
PHYSICAL THERAPY Physical therapy evaluation order recieved and chart reviewed. Checked with nursing prior to evaluation. Attempted to complete evaluation however patient was minimally responsive to simple commands throughout. Pt was unable to respond to questioning with simple head shaking yes or no. Intermittently patient was able to squeeze hand when verbally asked to. No other physical movement was noted with patient supine. Determined that patient was not appropriate to attempt an evaluation at this time due to minimal to no participation. Pt was adjusted in bed with pillows and wedges in order to facilitate proper positioning. Communinicated with nursing staff of patients status and needs regarding positioning. Will attempt to see patient at a later time when appropriate. thanks Odessa Avendaño PT DPT
--- NOTE | 2020-03-09 15:38 | NUR ---
MCKEON CATHETER REMOVED PER ORDER.
--- NOTE | 2020-03-09 20:40 | NUR ---
INTO PATIENTS ROOM TO ASSESS PATIENT. PATIENT FOUND TO BE LAYING ON HIS RIGHT SIDE. DROOLING FROM RIGHT SIDE OF MOUTH. PATIENT UNRESPONSIVE. OPENS EYES TO PAINFUL STIMULI ONLY. FOLLOWS NO COMMANDS. VSS. TEMP 98.0, PULSE IN THE 90'S, RESPIRATIONS 28 PER MINUTE WITH LABORED BREATHING NOTED. BLOOD PRESSURE 128/76. PATIENT 100% ON 8L HIGH FLOW. BLOOD SUGAR 115. CALLED DR. MORALEZ FROM PATIENTS ROOM. STAT CT ORDERED AND STAT ABGS ORDERED. RESPIRATORY NOTIFIED.
[2020-03-09 21:13] LABS: ABG BASE EXCESS 10.8 mmol/L (-2.0-2.0)
--- NOTE | 2020-03-09 21:15 | NUR ---
PATIENT PLACED ON BIPAP 04/01. 60% PULSE OX 99%
[2020-03-09 21:17] LABS: ARTERIAL BLOOD GAS PH 7.193 (7.35-7.45)
[2020-03-09 21:50] LABS: BUN 55 mg/dl (7-24); CHLORIDE 107 mmol/L (98-107); CREATININE 1.22 mg/dL (0.70-1.30); POTASSIUM 4.9 mmol/L (3.5-5.1); SODIUM 149 mmol/L (136-145)
--- NOTE | 2020-03-09 22:30 | NUR ---
PATIENT TRANSFERRED TO THE ICU WITH RN AND RESPIRATORY. TRANSFERRED WEARING NASAL CANNULA AND WAS IMMEDIATELY PLACED ON BIPAP WHEN HE HAD REACHED THE ICU. SHANE ANESTHESIOLOGIST HERE TO INTUBATE PATIENT PER DR CHONG'S ORDER.
--- NOTE | 2020-03-09 22:45 | NUR ---
PATIENT INTUBATED WITH #8 ET TUBE-23 @LIP. TOLERATED WELL. STAT CHEST XRAY ORDERED
[2020-03-10] VITALS (86 sets, daily range): BP systolic 50–132; BP diastolic 31–74
--- NOTE | 2020-03-10 00:15 | NUR ---
ART LINE PLACED BY SHANE ANESTHESIOLOGIST. TOLERATED WELL. BLOOD PRESSURE LOW, LEVOPHED TO BE STARTED
--- NOTE | 2020-03-10 01:30 | NUR ---
PATIENT BATHED AND BED CHANGED AT THIS TIME, TOLERATED WELL.
[2020-03-10 01:43] LABS: ABG BASE EXCESS 8.8 mmol/L (-2.0-2.0); ARTERIAL BLOOD GAS PH 7.336 (7.35-7.45)
--- NOTE | 2020-03-10 02:00 | NUR ---
ABG RESULTS CALLED TO DR CHONG AT THIS TIME. ORDERS RECIEVED
[2020-03-10 05:46] LABS: ALBUMIN 2.2 gm/dl (3.1-4.5); CREATININE 1.62 mg/dL (0.70-1.30); POTASSIUM 4.4 mmol/L (3.5-5.1); TOTAL PROTEIN 5.8 gm/dL (6.4-8.2)
[2020-03-10 06:26] LABS: ACT PARTIAL THROMBO TIME 21.1 SECONDS (20.0-32.1)
[2020-03-10 06:59] LABS: HEMATOCRIT 32.1 % (42.0-52.0); MEAN CELL VOLUME 97.3 fl (80.0-94.0); MEAN CORPUSCULAR HGB 27.6 pg (27.0-31.0); MEAN CORPUSCULAR HGB CONC 28.3 g/dl (33.0-37.0); MEAN PLATELET VOLUME 11.8 fl (9.6-12.3); NUCLEATED RED BLOOD CELL 0.3 % (0.0-0.0); WHITE BLOOD COUNT 11.8 10*3/uL (4.8-10.8)
[2020-03-10 07:13] LABS: PLATELET COUNT AUTOMATED 485 10*3/uL (130-400)
--- NOTE | 2020-03-10 08:00 | NUR ---
REMAINS INTUBATED, ETT SECURE OGT PALCEMENT CHECKED PT HAS BEEN MAXED ON LEVAPHED ART ZERO CALIBRATED AND LEVELED
[2020-03-10 08:03] LABS: ATYPICAL LYMPHS 1 % (0-0); PLATELET SUFFICIENCY HIGH (NORMAL); TOTAL CELLS COUNTED 100 #CELLS
--- NOTE | 2020-03-10 08:05 | NUR ---
OT NOTE Occupational therapy order received when patient was admitted to the fourth floor. Patient was transferred and intubated on a vent on 03/09/2020. Patient is not appropriate for occupational therapy at this time. Will need new orders when patient is medically stable and appropriate for an evaluation. Thank you. Sherine Romo, OTR/L
[2020-03-10 08:06] LABS: ABG BASE EXCESS 8.5 mmol/L (-2.0-2.0); ARTERIAL BLOOD GAS PH 7.317 (7.35-7.45)
--- NOTE | 2020-03-10 09:30 | NUR ---
vasopressin added at 0.01, as levaphed is maxed out
[2020-03-10 09:31] LABS: BACTERIA 1+; BILIRUBIN Negative (Negative); BLOOD 3+ (Negative); CLARITY Cloudy (Clear); COLOR Yellow (Yellow); EPITHELIAL CELLS 0-2; GLUCOSE Negative (Negative); KETONE Negative (Negative); LEUKO ESTERASE Negative (Negative); NITRITE Negative (Negative); RBC TNTC rbc/hpf (0-2); UROBILINOGEN 0.2 E.U./dl (0.0-1.0)
[2020-03-10 09:32] LABS: MUCOUS TRACE
--- NOTE | 2020-03-10 10:05 | NUR ---
PHYSICAL THERAPY Physical therapy order received when patient was admitted to the fourth floor. Patient was transferred and intubated on a vent on 03/09/2020. Patient is not appropriate for physical therapy at this time. Will need new orders when patient is medically stable and appropriate for an evaluation. Thank you. Odessa Avendaño PT DPT
--- NOTE | 2020-03-10 15:28 | NUR ---
vasopressin titrated off
--- NOTE | 2020-03-10 18:11 | NUR ---
TURNED AND REPOSITIONED INC LARGE AMOUNT BROWN MUSHY STOOL LEVAPHED ON AT 20 PULMOCARE AT 40
[2020-03-10 18:22] LABS: ABG BASE EXCESS 10.1 mmol/L (-2.0-2.0); ARTERIAL BLOOD GAS PH 7.343 (7.35-7.45)
[2020-03-11] VITALS (91 sets, daily range): BP systolic 81–151; BP diastolic 50–87
--- NOTE | 2020-03-11 | NUR ---
LEVOPHED TITRATED DOWN FOR MAP >70
--- NOTE | 2020-03-11 05:32 | NUR ---
AM LABS DRAWN AT THIS TIME. PATIENT AWAKENS TO VOICE BUT DRIFTS QUIETLY TO SLEEP. NO SIGNS OR SYMPTOMS OF DISTRESS. NO SECRETIONS ORALLY OR IN THE ET TUBE.
[2020-03-11 06:03] LABS: ALBUMIN 2.2 gm/dl (3.1-4.5); ALKALINE PHOSPHATASE 53 U/L (45-117); CHLORIDE 103 mmol/L (98-107); CREATININE 1.08 mg/dL (0.70-1.30); POTASSIUM 3.9 mmol/L (3.5-5.1); SGOT/AST 27 IU/L (3-35); SGPT/ALT 31 U/L (12-78); SODIUM 143 mmol/L (136-145); TOTAL PROTEIN 5.3 gm/dL (6.4-8.2)
[2020-03-11 06:08] LABS: BASO % 0.1 % (0.0-1.0); BUN 42 mg/dl (7-24); EOS # 0.1 10*3/uL (0.0-0.4); EOS % 0.4 % (1.0-4.0); HEMATOCRIT 27.7 % (42.0-52.0); LYMPH # 2.4 10*3/uL (1.3-4.4); LYMPH % 21.2 % (27.0-41.0); MEAN CELL VOLUME 95.5 fl (80.0-94.0); MEAN CORPUSCULAR HGB 27.6 pg (27.0-31.0); MEAN CORPUSCULAR HGB CONC 28.9 g/dl (33.0-37.0); MEAN PLATELET VOLUME 11.5 fl (9.6-12.3); MONO # 0.8 10*3/uL (0.1-1.0); MONO % 7.2 % (3.0-9.0); NEUT # 7.7 10*3/uL (2.3-7.9); NUCLEATED RED BLOOD CELL 0.2 % (0.0-0.0); PLATELET COUNT AUTOMATED 454 10*3/uL (130-400); RED CELL DISTRI WIDTH 14.7 % (0-14.5); WHITE BLOOD COUNT 11.2 10*3/uL (4.8-10.8)
[2020-03-11 09:15] LABS: ABG BASE EXCESS 9.9 mmol/L (-2.0-2.0); ARTERIAL BLOOD GAS PH 7.327 (7.35-7.45)
--- NOTE | 2020-03-11 13:08 | NUR ---
PT ON CPAP AND DID NOT TOLERATE. PLACED BACK ON A/C . RESTING AT THIS TIME
--- NOTE | 2020-03-11 13:42 | NUR ---
PT FAILED CPAP, HR TO 140 AND LABORED RESPS, RETURNED TO VENT SETTINGS AND SEDATION RESUMED AT 15, LEVAPHED TITRATED UP BP ALSO DROPPED TO MAP 58
--- NOTE | 2020-03-11 15:01 | NUR ---
DR CHONG UPDATED ON PT FAILING CPAP AND TO JUST KEEP PT ON THE REGULAR VENT SETTINGS FOR NOW
--- NOTE | 2020-03-11 21:26 | NUR ---
PT. RESTING IN BED. ADEQUATELY SEDATED ON DIPROVAN DRIP. LUNGS DIMINISHED BILAT, PULSE OX 100% ON 35% FIO2. ABDOMEN SOFT, NONDISTENDED AND NORMO. DEPENDENT EDEMA. L BRACHIAL ARTERY INTACT, RIJ MLC INTACT. MCKEON DRAINING A CLEAR YELLOW URINE. ORAL MOUTH CARE GIVEN AND PT SUCTIONED FOR LARGE AMT OF THICK YELLOW MUCOUS AND LARGE AMT OF CLEAR ORAL SECRETIONS. GERALDO NGUYEN RN
[2020-03-12] VITALS (96 sets, daily range): BP systolic 69–1109; BP diastolic 42–94
--- NOTE | 2020-03-12 | NUR ---
LEVOPHED (DS) TITRATED DOWN TO 18MICS. WILL CONTINUE TO MONITOR
--- NOTE | 2020-03-12 01:55 | NUR ---
PT. GIVEN TYLENOL FOR TEMP OF 101.1 AND HR OF 128, CURRENT HR 110'S WITH TEMP OF 100.8. WILL CONTINUE TO MONITOR. GERALDO NGUYEN RN
[2020-03-12 05:48] LABS: ALBUMIN 2.4 gm/dl (3.1-4.5); BUN 34 mg/dl (7-24); CHLORIDE 100 mmol/L (98-107); CREATININE 0.99 mg/dL (0.70-1.30); LDH 404 U/L (87-241); POTASSIUM 4.5 mmol/L (3.5-5.1); SGOT/AST 45 IU/L (3-35); SGPT/ALT 37 U/L (12-78); SODIUM 140 mmol/L (136-145); TOTAL PROTEIN 5.5 gm/dL (6.4-8.2)
[2020-03-12 05:49] LABS: ALKALINE PHOSPHATASE 55 U/L (45-117)
[2020-03-12 06:16] LABS: BASO % 0.1 % (0.0-1.0); EOS % 0.3 % (1.0-4.0); HEMATOCRIT 30.3 % (42.0-52.0); LYMPH # 1.7 10*3/uL (1.3-4.4); LYMPH % 14.9 % (27.0-41.0); MEAN CELL VOLUME 94.7 fl (80.0-94.0); MEAN CORPUSCULAR HGB 27.2 pg (27.0-31.0); MEAN CORPUSCULAR HGB CONC 28.7 g/dl (33.0-37.0); MEAN PLATELET VOLUME 11.4 fl (9.6-12.3); MONO # 0.9 10*3/uL (0.1-1.0); MONO % 7.6 % (3.0-9.0); NEUT # 8.7 10*3/uL (2.3-7.9); NEUT % 75.1 % (47.0-73.0); NUCLEATED RED BLOOD CELL 0.2 % (0.0-0.0); PLATELET COUNT AUTOMATED 578 10*3/uL (130-400); RED CELL DISTRI WIDTH 14.7 % (0-14.5); WHITE BLOOD COUNT 11.6 10*3/uL (4.8-10.8)
[2020-03-12 09:22] LABS: ABG BASE EXCESS 9.7 mmol/L (-2.0-2.0); ARTERIAL BLOOD GAS PH 7.322 (7.35-7.45)
--- NOTE | 2020-03-12 10:42 | NUR ---
ON ASSESSMENT THIS AM PT ADEQUATELY SEDATED ON DIPRIVAN AT 20MCG/KG/MIN. LEVOPHED AT 18MCG/MIN, 1/2 NS AT 75ML/HR. SEDATION VACATION HELD AND PT MADE EYE CONTACT, NODDED AT ME. HIS DAUGHTER WAS CALLED AND CONSENT OBTAINED TO INSERT NEW MLC. THIS WAS DONE BY JANEL KELLER IN THE LEFT IJ. CXR WAS OBTAINED. THE RSC MLC WAS REMOVED AND THE CATHETER CUT, USING STERILE TECHNIQUE AND TAKEN TO THE LAB. MCKEON PATENT DEREK URINE. LEFT BRACHIAL ARTERIAL LINE WITH GOOD WAVE FORM AND DYNAMIC RESPONSE. SEE ALL APPROPRIATE INTERVENTIONS.
[2020-03-12 14:42] LABS: ABG BASE EXCESS 6.5 mmol/L (-2.0-2.0); ARTERIAL BLOOD GAS PH 7.349 (7.35-7.45)
--- NOTE | 2020-03-12 17:15 | NUR ---
VT INCREASED TO 525, ABG IN [address] CHONG.
--- NOTE | 2020-03-12 17:27 | NUR ---
DR CHONG UPDATED ON ADDITION OF 2ND AND 3RD PRESSOR, THE CHANGING OF CODE STATUS TO DNR CC ARREST AND LATEST ABG'S. ORDERS RECEIVED.
[2020-03-12 19:27] LABS: ABG BASE EXCESS 5.7 mmol/L (-2.0-2.0); ARTERIAL BLOOD GAS PH 7.322 (7.35-7.45)
--- NOTE | 2020-03-12 21:17 | NUR ---
2000 ISOLATION CONT. RESTING IN BED IN SUPINE POSITION. ET SECURE TO VENT. PULSE OX 96%. LIJ INTACT. LB ART LINE INTACT. DIPRIVAN, DS LEVOPHED, VASOPRESSIN AND EPI GTTS CONT. SEE INTERVENTION SCREEN FOR Q15MIN BP'S. EYES OPEN TO NAME. WRISTY RESTRAINTS INTACT BILATERALLY. CIRCULATION ADEQUATE. MCKEON PATENT AND DRAINING CLEAR YELLOW URINE.
--- NOTE | 2020-03-12 21:43 | NUR ---
ET TUBE ADVANCED TO 26 CM AT THE LIP PER DR CHONG'S ORDER.
--- NOTE | 2020-03-12 21:48 | NUR ---
ET ADVANCED TO [address] LIP PER DR. CHONG' INSTRUCTIONS. PORTABLE CXR ORDERED AFTER CHANGE DONE.
--- NOTE | 2020-03-12 22:41 | NUR ---
BP IS VERY LABILE. ALSO HR. WILL CONT TO MONITOR.
[2020-03-13] VITALS (95 sets, daily range): BP systolic 84–213; BP diastolic 59–120
--- NOTE | 2020-03-13 00:30 | NUR ---
HAD HUGE BM OF BROWN ,LIQUID STOOL. LYNDA CARE DONE AND LINENS CHANGED.
--- NOTE | 2020-03-13 02:56 | NUR ---
0256 PT RECTAL TEMP IS 101.1. TYLENOL GIVEN VIA OGT FOR THIS. WILL MONITOR.
--- NOTE | 2020-03-13 03:56 | NUR ---
0356 TEMP IS NOW 100.9 AFTER EARLIER TYLENOL.
--- NOTE | 2020-03-13 04:35 | NUR ---
0000 LATE ENTRY. AFTER EARLIER ADVANCEMENT OF ET, CXR SHOWS THAT ET NEEDS ADVANCED ANOTHER 4CM, TO 30 CM. MARKINGS ON ET ONLY GO TO 29CM. PT IS GETTING VOLUMES ON VENT AND VENT IS NOT ALARMING. WILL NOTIFY AM STAFF. RESPIRATORY THERAPIST IS AWARE AND VIEWED MARKING ON ET WITH THIS RN. WILL CONT TO MONITOR.
--- NOTE | 2020-03-13 06:21 | NUR ---
REPOSITIONED ON BACK. HOB ELEVATED. ET SECURE TO VENT. PULSE OX 98%. ALL GTTS CONT. Q15MIN BP'S CONT. HR AND BP REMAIN VERY LABILE. ALL PRESSORS CONT. CONDITION SERIOUS.
[2020-03-13 06:32] LABS: ALBUMIN 3.2 gm/dl (3.1-4.5); BUN 41 mg/dl (7-24); CHLORIDE 96 mmol/L (98-107); CREATININE 1.14 mg/dL (0.70-1.30); LDH 474 U/L (87-241); POTASSIUM 4.3 mmol/L (3.5-5.1); SGOT/AST 42 IU/L (3-35); SGPT/ALT 45 U/L (12-78); SODIUM 136 mmol/L (136-145); TOTAL PROTEIN 5.9 gm/dL (6.4-8.2)
[2020-03-13 06:33] LABS: ALKALINE PHOSPHATASE 63 U/L (45-117)
[2020-03-13 06:39] LABS: BASO % 0.2 % (0.0-1.0); HEMATOCRIT 26.4 % (42.0-52.0); LYMPH # 1.6 10*3/uL (1.3-4.4); LYMPH % 9.3 % (27.0-41.0); MEAN CORPUSCULAR HGB 27.3 pg (27.0-31.0); MEAN CORPUSCULAR HGB CONC 29.9 g/dl (33.0-37.0); MEAN PLATELET VOLUME 11.4 fl (9.6-12.3); MONO # 1.3 10*3/uL (0.1-1.0); MONO % 7.5 % (3.0-9.0); NEUT # 14.3 10*3/uL (2.3-7.9); NEUT % 81.5 % (47.0-73.0); NUCLEATED RED BLOOD CELL 0.2 % (0.0-0.0); PLATELET COUNT AUTOMATED 579 10*3/uL (130-400); RED BLOOD COUNT 2.89 10*6/uL (4.50-5.90); WHITE BLOOD COUNT 17.5 10*3/uL (4.8-10.8)
[2020-03-13 06:45] LABS: MEAN CELL VOLUME 91.3 fl (80.0-94.0)
[2020-03-13 08:02] LABS: ABG BASE EXCESS 8.4 mmol/L (-2.0-2.0); ARTERIAL BLOOD GAS PH 7.365 (7.35-7.45)
--- NOTE | 2020-03-13 12:38 | NUR ---
VERSED GIVEN PER VERBAL FROM DR CHONG AFTER ETT ADVANCED AND PATIENT STILL NOT GETTING PRESSURES ON ASSIST CONTROL - BEDSIDE BRONCH AFTER CONSENT FROM FAMILY
--- NOTE | 2020-03-13 13:00 | NUR ---
BEDSIDE BRONCH DONE ETT POSITION VERIFIED BY DR CHONG
--- NOTE | 2020-03-13 13:35 | NUR ---
AFTER BRONCH PT HR UP TO 130'S, BUT RESOLVED WITHOUT INTERVENTION PT ALSO BECOME TACHYCARDIC WITH AND NURSING CARE, AND BP WILL DROP WITH THE TACHYCARDIA, BOTH SELF RESOLVE WITHOUT INTERVENTIONS WHEN PT IS LEFT ALONE
[2020-03-13 14:41] LABS: ABG BASE EXCESS 8.8 mmol/L (-2.0-2.0); ARTERIAL BLOOD GAS PH 7.249 (7.35-7.45)
[2020-03-13 17:09] LABS: ABG BASE EXCESS 9.1 mmol/L (-2.0-2.0); ARTERIAL BLOOD GAS PH 7.378 (7.35-7.45)
[2020-03-13 20:14] LABS: ABG BASE EXCESS 9.4 mmol/L (-2.0-2.0); ARTERIAL BLOOD GAS PH 7.389 (7.35-7.45)
[2020-03-14] VITALS (96 sets, daily range): BP systolic 70–218; BP diastolic 50–557
--- NOTE | 2020-03-14 03:40 | NUR ---
DR SHAHID NOTIFIED OF PTS TACHYCARDIA AND HR, ORDERS TO FOLLOW
--- NOTE | 2020-03-14 04:24 | NUR ---
PT GETS EXTREMELY AGITATED WITH TURN AND REPOSITIONED, GETS TACHYCARDIC AND HYPOTENSIVE, SETTLES ON OWN AFTER A FEW MINUTES
[2020-03-14 06:06] LABS: BASO % 0.1 % (0.0-1.0); HEMATOCRIT 24.5 % (42.0-52.0); LYMPH # 1.4 10*3/uL (1.3-4.4); LYMPH % 6.6 % (27.0-41.0); MEAN CELL VOLUME 91.4 fl (80.0-94.0); MEAN CORPUSCULAR HGB 27.6 pg (27.0-31.0); MEAN CORPUSCULAR HGB CONC 30.2 g/dl (33.0-37.0); MEAN PLATELET VOLUME 11.3 fl (9.6-12.3); MONO # 1.3 10*3/uL (0.1-1.0); MONO % 6.3 % (3.0-9.0); NEUT % 86.1 % (47.0-73.0); PLATELET COUNT AUTOMATED 483 10*3/uL (130-400); RED BLOOD COUNT 2.68 10*6/uL (4.50-5.90); RED CELL DISTRI WIDTH 15.3 % (0-14.5)
[2020-03-14 06:11] LABS: ALBUMIN 3.4 gm/dl (3.1-4.5); ALKALINE PHOSPHATASE 60 U/L (45-117); BUN 36 mg/dl (7-24); CHLORIDE 93 mmol/L (98-107); LDH 371 U/L (87-241); SGOT/AST 35 IU/L (3-35); SGPT/ALT 42 U/L (12-78); SODIUM 135 mmol/L (136-145); TOTAL PROTEIN 6.1 gm/dL (6.4-8.2)
[2020-03-14 06:21] LABS: POTASSIUM 3.3 mmol/L (3.5-5.1)
[2020-03-14 07:50] LABS: ABG BASE EXCESS 11.7 mmol/L (-2.0-2.0); ARTERIAL BLOOD GAS PH 7.44 (7.35-7.45)
--- NOTE | 2020-03-14 09:08 | NUR ---
RESIDENT NOTIFIED OF NEED FOR WOUND CARE ORDERS
[2020-03-14 15:06] LABS: ACID FAST SPEC PROCESSING Concentration (.)
[2020-03-14 15:26] LABS: ABG BASE EXCESS 11.1 mmol/L (-2.0-2.0); ARTERIAL BLOOD GAS PH 7.392 (7.35-7.45)
--- NOTE | 2020-03-14 17:30 | NUR ---
EPI TITRATED OFF PER POLICY
--- NOTE | 2020-03-14 21:07 | NUR ---
STILL TACHYCARDIC AND TACHYNEPNIC, DIPROVAN NOW AT 25MICS
[2020-03-14 21:57] LABS: ABG BASE EXCESS 13.1 mmol/L (-2.0-2.0); ARTERIAL BLOOD GAS PH 7.441 (7.35-7.45)
--- NOTE | 2020-03-14 23:09 | NUR ---
PT CALMER BREATHING EASY AND EVEN NOW, DIPROVAN BACKED OFF TO 20MICS/KG/MIN
[2020-03-15] VITALS (96 sets, daily range): BP systolic 83–172; BP diastolic 52–93
[2020-03-15 06:04] LABS: ALBUMIN 3.5 gm/dl (3.1-4.5); ALKALINE PHOSPHATASE 54 U/L (45-117); BUN 41 mg/dl (7-24); CHLORIDE 91 mmol/L (98-107); CREATININE 0.93 mg/dL (0.70-1.30); SGOT/AST 40 IU/L (3-35); SGPT/ALT 45 U/L (12-78); SODIUM 133 mmol/L (136-145)
[2020-03-15 06:11] LABS: BASO % 0.1 % (0.0-1.0); HEMATOCRIT 23.9 % (42.0-52.0); LYMPH # 1.8 10*3/uL (1.3-4.4); LYMPH % 9.7 % (27.0-41.0); MEAN CELL VOLUME 91.6 fl (80.0-94.0); MEAN CORPUSCULAR HGB 27.6 pg (27.0-31.0); MEAN CORPUSCULAR HGB CONC 30.1 g/dl (33.0-37.0); MEAN PLATELET VOLUME 11.8 fl (9.6-12.3); MONO % 5.2 % (3.0-9.0); NEUT # 15.2 10*3/uL (2.3-7.9); NEUT % 84.1 % (47.0-73.0); PLATELET COUNT AUTOMATED 490 10*3/uL (130-400); RED BLOOD COUNT 2.61 10*6/uL (4.50-5.90); RED CELL DISTRI WIDTH 15.5 % (0-14.5); WHITE BLOOD COUNT 18.1 10*3/uL (4.8-10.8)
[2020-03-15 07:36] LABS: ABG BASE EXCESS 12.3 mmol/L (-2.0-2.0); ARTERIAL BLOOD GAS PH 7.441 (7.35-7.45)
--- NOTE | 2020-03-15 08:18 | NUR ---
PAYROLL AND BENEFITS ASSISTANT FAXED UPDATES TO [facility] FOR REVIEW.
--- NOTE | 2020-03-15 09:30 | NUR ---
VASOPRESSIN TITRATED OFF
--- NOTE | 2020-03-15 10:00 | NUR ---
LEVAPHED TITRATED TO 19M
--- NOTE | 2020-03-15 10:30 | NUR ---
LEVAPHED TITRATED TO 18
--- NOTE | 2020-03-15 10:34 | NUR ---
ART LINE CHANGED BY ANESTHESIA, THE CURRENT ART WAS LEAKING FROM THE SITE
--- NOTE | 2020-03-15 11:00 | NUR ---
LEVAPHED TITRATED TO 17
--- NOTE | 2020-03-15 11:30 | NUR ---
LEVAPHED TITRATED TO 16
--- NOTE | 2020-03-15 12:00 | NUR ---
LEVAPHED TITRTAED TO 15
--- NOTE | 2020-03-15 12:30 | NUR ---
LEVAPHED TITRATED TO 14
[2020-03-15 13:46] LABS: ABG BASE EXCESS 12.7 mmol/L (-2.0-2.0); ARTERIAL BLOOD GAS PH 7.394 (7.35-7.45)
--- NOTE | 2020-03-15 14:00 | NUR ---
LEVAPHED TITRATED TO 14
--- NOTE | 2020-03-15 14:00 | NUR ---
LEVAPHED TITRATED TO 13
--- NOTE | 2020-03-15 14:30 | NUR ---
LEVAPHED TITRATED TO 12
[2020-03-15 14:49] LABS: ABG BASE EXCESS 13.1 mmol/L (-2.0-2.0); ARTERIAL BLOOD GAS PH 7.393 (7.35-7.45)
--- NOTE | 2020-03-15 15:00 | NUR ---
TITRATED TO 11
--- NOTE | 2020-03-15 15:00 | NUR ---
SPOKE WITH DTR BRIAN ABOUT EXTUBATION, AND IF HE WOULD NEED TO BE REINTUBATED, THAT HE WOULD NEED TO BE TRACHED, DTR IS RECEPTIVE TO TRACHING PT AND WOULD WANT HIM TRACHED IF NEEDED
--- NOTE | 2020-03-15 15:30 | NUR ---
LEVAPHED TITRATED TO 10
--- NOTE | 2020-03-15 16:00 | NUR ---
LEVAPHED TITRATED TO 9
--- NOTE | 2020-03-15 16:30 | NUR ---
LEVAPHED TITRATED TO 8
--- NOTE | 2020-03-15 17:00 | NUR ---
LEVAPHED TITRATED TO 7
--- NOTE | 2020-03-15 17:00 | NUR ---
LEVAPHED TITRATED TO 6
[2020-03-15 17:28] LABS: ABG BASE EXCESS 16.2 mmol/L (-2.0-2.0); ARTERIAL BLOOD GAS PH 7.404 (7.35-7.45)
--- NOTE | 2020-03-15 17:30 | NUR ---
TITRATED TO 6
--- NOTE | 2020-03-15 18:00 | NUR ---
LEVAPHED TITRATED TO 5
--- NOTE | 2020-03-15 19:45 | NUR ---
Patient extubated on physician's order. TO BIPAP AT 22/10 35% Pulse oximeter on with alarms set at 10% below patient's baseline. PATIENT PULSE OX REMAINS 95-98% Pharyngeal reflex present prior to extubation. Patient encouraged to cough and deep breathe. Patient observed for skin color and temperature, monitor rhythm, respiratory rate and effort, and level of consciousness. NPO INDEFINETLY. Patient tolerated procedure WELL. PATIENT EDUCATED THROUGHOUT PROCESS AND NODDED APPROPRIATELY. MARGE VILLAR
--- NOTE | 2020-03-15 19:50 | NUR ---
PT EXTUBATED TO BIPAP 31/12 PER MD ORDER. PT APPERAS TO BE MARTIN WELL. SPO2 IS MAINTAINING 98% ON 35% O2. NO COMPLAINTS OF SOB AND NO VISABLE SIGNS OF RES DISTRESS. WILL CONTINUE TO MONITOR.
--- NOTE | 2020-03-15 20:00 | NUR ---
LEVOPHED TITRATED TO 3MCG AFTER EXTUBATION, PATIENT BLOOD PRESSURE AND MAP WNL AND TOLERATING WELL.
[2020-03-15 22:00] LABS: ABG BASE EXCESS 19.8 mmol/L (-2.0-2.0); ARTERIAL BLOOD GAS PH 7.428 (7.35-7.45)
--- NOTE | 2020-03-15 22:00 | NUR ---
ABG RESULTS CALLED TO DR CHONG BY RESPIRATORY AT THIS TIME. NO NEW ORDERS. TOLERATING BIPAP WELL.
--- NOTE | 2020-03-15 22:11 | NUR ---
MEDICATED WITH TYLENOL FOR C/O BACK PAIN. RN WILL MONITOR
--- NOTE | 2020-03-15 23:15 | NUR ---
NODS WHEN ASKED IF TYLENOL HELPED BACK PAIN
[2020-03-16] VITALS (71 sets, daily range): BP systolic 77–155; BP diastolic 50–79
[2020-03-16 06:11] LABS: MEAN CELL VOLUME 93.9 fl (80.0-94.0); MEAN CORPUSCULAR HGB 27.3 pg (27.0-31.0); MEAN CORPUSCULAR HGB CONC 29.1 g/dl (33.0-37.0); MEAN PLATELET VOLUME 12.1 fl (9.6-12.3); PLATELET COUNT AUTOMATED 377 10*3/uL (130-400); RED BLOOD COUNT 2.45 10*6/uL (4.50-5.90); RED CELL DISTRI WIDTH 15.7 % (0-14.5); WHITE BLOOD COUNT 13.6 10*3/uL (4.8-10.8)
[2020-03-16 06:14] LABS: ALBUMIN 3.7 gm/dl (3.1-4.5); ALKALINE PHOSPHATASE 49 U/L (45-117); BUN 37 mg/dl (7-24); CHLORIDE 95 mmol/L (98-107); CREATININE 0.91 mg/dL (0.70-1.30); POTASSIUM 3.1 mmol/L (3.5-5.1); SGOT/AST 40 IU/L (3-35); SGPT/ALT 43 U/L (12-78); SODIUM 141 mmol/L (136-145)
[2020-03-16 06:20] LABS: TOTAL PROTEIN 5.8 gm/dL (6.4-8.2)
--- NOTE | 2020-03-16 06:33 | NUR ---
DR ZUNIGA CALLED WITH LOW HGB, STATES SHE WILL TKAE A LOOK AND PLACE ORDERS.
[2020-03-16 06:46] LABS: TOTAL CELLS COUNTED 100 #CELLS
[2020-03-16 06:47] LABS: OVALOCYTES FEW; PLATELET SUFFICIENCY NORMAL (NORMAL); SCHISTOCYTES FEW
--- NOTE | 2020-03-16 07:40 | NUR ---
Shift chart check completed.24 HR chart check completed.
[2020-03-16 08:36] LABS: ABG BASE EXCESS 20.1 mmol/L (-2.0-2.0); ARTERIAL BLOOD GAS PH 7.417 (7.35-7.45)
--- NOTE | 2020-03-16 09:00 | NUR ---
patient is positive covid, extubated on bipap, patient is short term skilled at [facility] and will return when discharged. case management will follow
--- NOTE | 2020-03-16 12:11 | NUR ---
MARKETING RECRUITER FAXED UPDATES TO [facility] FOR REVIEW. WILL NEED NEW PT/OT ORDERS WITH MEDICALLY APPROPRIATE.
--- NOTE | 2020-03-16 12:15 | NUR ---
FIO2 INCREASED FROM 255 TO 30% ON BIPAP. SPO2 92% HR 127
[2020-03-16 16:51] LABS: ABG BASE EXCESS 16.4 mmol/L (-2.0-2.0); ARTERIAL BLOOD GAS PH 7.372 (7.35-7.45)
[2020-03-16 17:06] LABS: HEMATOCRIT 31.4 % (42.0-52.0); MEAN CORPUSCULAR HGB 27.9 pg (27.0-31.0); MEAN CORPUSCULAR HGB CONC 28.7 g/dl (33.0-37.0); MEAN PLATELET VOLUME 11.9 fl (9.6-12.3); PLATELET COUNT AUTOMATED 362 10*3/uL (130-400); RED BLOOD COUNT 3.23 10*6/uL (4.50-5.90); RED CELL DISTRI WIDTH 15.3 % (0-14.5); WHITE BLOOD COUNT 21.9 10*3/uL (4.8-10.8)
[2020-03-16 17:10] LABS: MEAN CELL VOLUME 97.2 fl (80.0-94.0)
[2020-03-16 17:27] LABS: STOMATOCYTE MODERATE; TOTAL CELLS COUNTED 100 #CELLS
[2020-03-16 17:28] LABS: PLATELET SUFFICIENCY NORMAL (NORMAL)
--- NOTE | 2020-03-16 17:50 | NUR ---
LEVOPHED GTT TURNED OF AT THIS TIME. MAP 80'S.
[2020-03-16 18:58] LABS: BUN 34 mg/dl (7-24); CHLORIDE 98 mmol/L (98-107); CREATININE 0.79 mg/dL (0.70-1.30); SODIUM 142 mmol/L (136-145)
--- NOTE | 2020-03-16 20:13 | NUR ---
1930 RESTING IN BED WITH HOB ELEVATED. ON LEFT SIDE. REMAINS NPO. TF MAINTAINED VIA OGT. PLACEMENT CONFIRMED WITH AIR BOLUS/AUSCULTATION. ORAL CARE DONE. APPEARS TO BE SLEEPING. OPENS EYES TO NAME. NO DISTRESS NOTED. LIJ MLC INTACT. RR ART LINE INTACT. ZEROED AND CALIBRATED WITH GOOOD WAVEFORM AND DYNAMIC RESPONSE. MCKEON PATENT AND DRAINING CLEAR YELLOW URINE. ISOLATION CONT.
[2020-03-16 21:20] LABS: BUN 35 mg/dl (7-24); CHLORIDE 98 mmol/L (98-107); CREATININE 0.76 mg/dL (0.70-1.30); SODIUM 142 mmol/L (136-145)
--- NOTE | 2020-03-16 22:17 | NUR ---
2130 FIRST DOSE OF DIAMOX GIVEN PER ORDER DR. CHONG FOR ELEVATED C02 ON BMP. BIPAP REMOVED AND ORAL CARE DONE.
[2020-03-17] VITALS: BP 134/76
--- NOTE | 2020-03-17 00:08 | NUR ---
RESTING IN BED WITH EYES CLOSED. APPEARS TO BE SLEEPING. BIPAP INTACT. PULSE OX 98%.
--- NOTE | 2020-03-17 01:11 | NUR ---
0045 COMPLETE BED BATH GIVEN AND LINENS CHANGED. REPOSITIONED.
[2020-03-17 04:00] VITALS: BP 124/75
[2020-03-17 05:53] LABS: ALBUMIN 3.6 gm/dl (3.1-4.5); ALKALINE PHOSPHATASE 58 U/L (45-117); BUN 33 mg/dl (7-24); CHLORIDE 99 mmol/L (98-107); CREATININE 0.68 mg/dL (0.70-1.30); SGOT/AST 38 IU/L (3-35); SGPT/ALT 46 U/L (12-78); SODIUM 145 mmol/L (136-145); TOTAL PROTEIN 6.1 gm/dL (6.4-8.2)
[2020-03-17 06:01] LABS: POTASSIUM 3.9 mmol/L (3.5-5.1)
--- NOTE | 2020-03-17 06:07 | NUR ---
0600 INCONTINENT OF MODERATE AMOUNT LIQUID, BROWN STOOL. LYNDA CARE DONE AND PADS CHANGED. REPOSITIONED ON BACK. TF CONT VIA OGT. MCKEON PATENT. CONDITION GUARDED.
[2020-03-17 06:20] LABS: BASO % 0.1 % (0.0-1.0); HEMATOCRIT 30.2 % (42.0-52.0); LYMPH # 1.3 10*3/uL (1.3-4.4); LYMPH % 7.7 % (27.0-41.0); MEAN CELL VOLUME 97.7 fl (80.0-94.0); MEAN CORPUSCULAR HGB 27.5 pg (27.0-31.0); MEAN CORPUSCULAR HGB CONC 28.1 g/dl (33.0-37.0); MEAN PLATELET VOLUME 12.2 fl (9.6-12.3); MONO # 1.3 10*3/uL (0.1-1.0); MONO % 7.5 % (3.0-9.0); NEUT # 14.2 10*3/uL (2.3-7.9); NEUT % 84.2 % (47.0-73.0); PLATELET COUNT AUTOMATED 435 10*3/uL (130-400); RED BLOOD COUNT 3.09 10*6/uL (4.50-5.90); RED CELL DISTRI WIDTH 15.6 % (0-14.5); WHITE BLOOD COUNT 16.9 10*3/uL (4.8-10.8)
[2020-03-17 08:00] VITALS: BP 121/74
[2020-03-17 08:03] LABS: ABG BASE EXCESS 12.6 mmol/L (-2.0-2.0); ARTERIAL BLOOD GAS PH 7.37 (7.35-7.45)
--- NOTE | 2020-03-17 08:03 | NUR ---
MEDICAL AIDES TEACHER FAXED REFERRAL TO [facility] FOR REVIEW.
[2020-03-17 12:00] VITALS: BP 108/70
--- NOTE | 2020-03-17 15:00 | NUR ---
PT TAKEN OFF BIPAP SO HE COULD TRY TO EAT. PLACED ON 4L NC AND POX 93% AT THIS TIME.
--- NOTE | 2020-03-17 15:15 | NUR ---
PT WAS ABLE TO EAT APPLESAUCE WITHOUT DIFFICULTY. OGT REMOVED AT THIS TIME AND PUREED DIET ORDERED.
[2020-03-17 16:00] VITALS: BP 114/70
[2020-03-17 20:00] VITALS: BP 107/73
--- NOTE | 2020-03-17 20:10 | NUR ---
1899 PULSE OX 77%. PT HAD TAKEN NC OFF. PLACED BACK ON BIPAP. PULSE OX UP TO 97% AFTER THIS. RESTING IN BED WITH HOB ELEVATED. SIDE RAILS UP X'S 2. CALL LIGHT IN REACH. LIJ MLC INTACT. RR ARTLINE INTACT. ZEROED AND CALIBRATED WITH GOOD WAVEFORM AND DYNAMIC RESPONSE. MIKE PATENT. ISOLATION CONT. NO DISTRESS NOTED.
--- NOTE | 2020-03-17 22:07 | NUR ---
REMAINS SLEEPING WITHOUT DISTRESS. BIPAP INTACT. PULSE OX 98%
[2020-03-18] VITALS: BP 113/72; BP 128/72
--- NOTE | 2020-03-18 00:23 | NUR ---
0000 INCONTINENT OF MODERATE AMOUNT BROWN LIQUID STOOL. LYNDA CARE DONE AND LINENS CHANGED. REPOSITIONED ON RIGHT SIDE. HOB ELEVATED. SIDE RAILS UP X'S 2. PULSE OX 96% WITH BIPAP INTACT.
--- NOTE | 2020-03-18 01:05 | NUR ---
PT HR IS 130. RR IS 28. PULSE OX IS 96% AND BP IS 124/76. DR. ZUNIGA CALLED WITH ELEVATED HR AND ALSO THAT PT WAS ON TOPROL XL 50MG PO BID DAILY.
--- NOTE | 2020-03-18 02:08 | NUR ---
0132 LOPRESSOR 2.5MG IV GOVEN FOR HR OF 137. SEE CHART FOR STRIPS. 0208 HR IS NOW 113. RESPIRATORY CALLED TO [facility] PT BIPAP. PULSE OX IS 96%. PT PT RESP APPEAR LABORED. REPOSITIONED ON BACK.
--- NOTE | 2020-03-18 02:28 | NUR ---
REPOSITIONED ON BACK. BIPAP REMOVED TO GIVE PT A DRINK. HAS DIFFICULTY FOLLOWING COMMANDS. DESATS TO 85% WHILE TAKING A DRINK. WILL CONT TO MONITOR. HR IS BACK UP TO 122. CHANGED RECTAL PROBE. RECTAL TEMP IS 98.4
--- NOTE | 2020-03-18 02:43 | NUR ---
0240 PULSE OX DROPPING. RESP THERAPY HERE. PULSE OX 82% ON 100% 02 ON BIPAP. ABG'S BEING DRAWN. DR. ZUNIGA CALLED TO COME SEE PT.
--- NOTE | 2020-03-18 02:47 | NUR ---
ABG DRAWN ON 31/12 100% AFTER GAS WAS DRAWN TURNED UP TO 100%
--- NOTE | 2020-03-18 02:47 | NUR ---
MESSAGE LEFT ON DTR CELL PHONE REGARDING FATHER'S CONDITION. DR. MORALEZ HERE.
--- NOTE | 2020-03-18 02:48 | NUR ---
KEEP ATTEMPTING TO REACH DTR VIA CELL PHONE NUMBER LISTED.
--- NOTE | 2020-03-18 02:50 | NUR ---
PULSE OX IS NOW 80% ON 100% 02 VIA BIPAP. HR IS 130. PT DOES NOT RESPOND TO VERBAL STIMULI. AWITING ABG RESULTS TO CALL DR. CHONG
[2020-03-18 02:53] LABS: ABG BASE EXCESS 7.8 mmol/L (-2.0-2.0)
[2020-03-18 02:55] LABS: ARTERIAL BLOOD GAS PH 7.165 (7.35-7.45)
--- NOTE | 2020-03-18 02:56 | NUR ---
DR. MORALEZ TALKING ON PHONE WITH DR. CUEVAS REGARDING PT CODE STATUS. ABG RESULTS BACK AND DR. MORALEZ AWARE. PULSE OX 79%. STILL ATTEMPTING TO REACH. DTR. ASSEMBLER CRIMPER AWARE. GIVEN PT ADDRESS. WILL SEND POLICE TO DTR HOUSE SINCE NO ANSWER ON HER CELL PHONE AFTER CALLING LISTED PHONE NUMBER CONTINUOUSLY.
--- NOTE | 2020-03-18 03:02 | NUR ---
CALLED PT FATHER. HE IS ELDERLY AND VERY [place]IM [place]. UNABLE TO GIVEN US ANY OTHER WAY TO REACH. PT DTR. DATA CENTER MANAGER STILL ATTEMPTING TO REACH DTR.
--- NOTE | 2020-03-18 03:04 | NUR ---
DR. CUEVAS INSTRUCTED DR. MORALEZ THAT PT IS A NO INTUBATION AND WAS VERY ADAMANT EARLIER TODAY ABOUT BEING A NO INTUBATION AND NOT PUT BACK ON THE VENT.
--- NOTE | 2020-03-18 03:07 | NUR ---
DR. CHONG NOT CALLLED WITH ABG'S DUE TO PT BEING A NO INTUBATION, PER DR. MORALEZ.
--- NOTE | 2020-03-18 03:14 | NUR ---
HR IS 129, PULSE OX 93%, BP IS 119/82. PULSE OX 94%. WILL CONT TO MONITOR. AWAITING CALL BACK FROM POLICE AFTER THEY GO TO PT DTR HOUSE.
--- NOTE | 2020-03-18 03:17 | NUR ---
ALSO ATTEMPTED TO TEXT DTR CELL PHONE WITH NO ANSWER.
--- NOTE | 2020-03-18 03:27 | NUR ---
DR. CHONG NOTIFIED OF CHANGE IN PT CONDITION. NO NEW ORDERS RECEIVED.
--- NOTE | 2020-03-18 03:43 | NUR ---
DR. ZUNIGA CALLED AND NOTIFIED THAT DR. CHONG IS AWARE OF CHANGE IN PT CONDITION AND NEED FOR SOMETHING FOR PT TO EASE RAPID RESPIRATIONS.
[2020-03-18 04:00] VITALS: BP 98/69
--- NOTE | 2020-03-18 04:09 | NUR ---
0409 STILL NO RETURN CALL FROM PT DTR. ATIVAN 0.5MG IV GIVEN ORDERED FOR PT COMOFRT. LOWERED BP IMMEDIATELY. BP IS 72/54 NOW. HR 127. WILL CONT TO MONITOR. PULSE OX 96%.
--- NOTE | 2020-03-18 05:01 | NUR ---
DTR CALLED IN. INFORMED OF FATHERS DETIORATING CONDITION. SHE WILL FIND A SITTER AND LET US KNOW WHEN SHE IS COMING IN.
--- NOTE | 2020-03-18 06:11 | NUR ---
0530 DTR HERE. PT CONDITION DISCUSSED WITH HER AT LENGTH. DR. MORALEZ HERE AND TALKED WITH DTR. 0600 PT IS A DNR-CC. MEDS ONLY.PROPER PAPERS SIGNED PER DR. MORALEZ/EFRAIN. DTR IS SITTING AT BEDSIDE. WITH PT. PT IS UNRESPONSIVE AT PRESENT. HR IS 117. BP REMAINS LOW AT 68/51. ART LINE IS LEAKING AT PRESENT. WAVE FORM IS INTACT. MCKEON PATENT. CONDITION SERIOUS.
[2020-03-18 06:38] LABS: HEMATOCRIT 34.7 % (42.0-52.0); MEAN CORPUSCULAR HGB 27.8 pg (27.0-31.0); MEAN CORPUSCULAR HGB CONC 27.1 g/dl (33.0-37.0); MEAN PLATELET VOLUME 12.2 fl (9.6-12.3); PLATELET COUNT AUTOMATED 477 10*3/uL (130-400); RED BLOOD COUNT 3.38 10*6/uL (4.50-5.90); RED CELL DISTRI WIDTH 15.1 % (0-14.5); WHITE BLOOD COUNT 34.5 10*3/uL (4.8-10.8)
[2020-03-18 06:42] LABS: CHLORIDE 103 mmol/L (98-107); POTASSIUM 4.1 mmol/L (3.5-5.1); SODIUM 143 mmol/L (136-145)
[2020-03-18 06:47] LABS: MEAN CELL VOLUME 102.7 fl (80.0-94.0)
[2020-03-18 06:49] LABS: ALBUMIN 3.6 gm/dl (3.1-4.5); ALKALINE PHOSPHATASE 67 U/L (45-117); BUN 40 mg/dl (7-24); CREATININE 1.01 mg/dL (0.70-1.30); SGOT/AST 29 IU/L (3-35); SGPT/ALT 46 U/L (12-78); TOTAL PROTEIN 6.7 gm/dL (6.4-8.2)
[2020-03-18 07:33] LABS: PLATELET SUFFICIENCY HIGH (NORMAL); STOMATOCYTE MODERATE; TOTAL CELLS COUNTED 100 #CELLS
[2020-03-18 08:00] VITALS: BP 63/48
[2020-03-18 08:45] LABS: ABG BASE EXCESS 5.6 mmol/L (-2.0-2.0)
[2020-03-18 08:53] LABS: ARTERIAL BLOOD GAS PH 7.152 (7.35-7.45)
--- NOTE | 2020-03-18 09:01 | NUR ---
CHANGED RR TO 20 BPM. ABG IN 2 HRS
--- NOTE | 2020-03-18 09:17 | NUR ---
REPOSITIONED, NO PURPOSEFUL RESPONSES MIKE SECURE DRSG TO LIJ CHANGED
[2020-03-18 12:00] VITALS: BP 77/51
--- NOTE | 2020-03-18 13:51 | NUR ---
RIGHT RADIAL ART REMOVED PER POLICY
--- NOTE | 2020-03-18 15:43 | NUR ---
TRANSFERRED TO [facility] DTR BRIAN BENNETT
[2020-03-18 16:00] VITALS: BP 100/65
--- NOTE | 2020-03-18 16:10 | NUR ---
UPSTREAM BIOMANUFACTURING TECHNICIAN SPOKE WITH PATIENTS DAUGHTER YOAN ABOUT HOSPICE. SHE DID NOT HAVE A PREFERENCE. UPSTREAM BIOMANUFACTURING TECHNICIAN FAXED REFERRAL TO [facility] FOR REVIEW. UPSTREAM BIOMANUFACTURING TECHNICIAN MAKE RN GOOD AWARE.
--- NOTE | 2020-03-18 16:17 | NUR ---
[facility] WILL MEET WITH THIS PATIENTS DAUGHTER THIS EVENING.
[2020-03-18 20:00] VITALS: BP 117/73
--- NOTE | 2020-03-18 20:15 | NUR ---
[facility] HERE MEETING WITH FAMILY. WAITING ON RECOMMENDATIONS
--- NOTE | 2020-03-18 20:57 | NUR ---
RECEIVED HOSPICE RECOMMENDATIONS. PATIENT TO BE DISCHARGED AT THIS TIME TO THE [facility]. NOTIFIED DR. BARKER OF RECOMMENDATIONS AND THAT THE COMFORT CARE PAPER WORK STILL NEEDED SIGNED BY A PHYSICAN. STATED HE WOULD BE UP.
== END 2020-03-18 20:57 | disposition hospice, home (50) | DRG 870 ==
LOC: ED 22:30 → ICCU 03-02 08:03 → EDHOLD 03-02 08:03 → ICCU 03-04 17:04 → 4E 03-09 09:45 → ICCU 03-09 22:46 → 4E 03-18 15:39
PROVIDERS: Emergency Medicine; Internal Medicine; Internal Medicine Cardiovascular Disease; Internal Medicine Critical Care Medicine; Internal Medicine Nephrology; Social Worker Clinical; Student in an Organized Health Care Education/Training Program; ADMIT Internal Medicine; ATTEND Internal Medicine
PROC: 5A1955Z Respiratory Ventilation, Greater than 96 Consecutive Hours (ICD-10-PCS; 2020-03-02)
PROC: 03HY32Z Insertion of Monitoring Device into Upper Artery, Percutaneous Approach (ICD-10-PCS; 2020-03-02)
PROC: 4A133B1 Monitoring of Arterial Pressure, Peripheral, Percutaneous Approach (ICD-10-PCS; 2020-03-02)
PROC: 4A133J1 Monitoring of Arterial Pulse, Peripheral, Percutaneous Approach (ICD-10-PCS; 2020-03-02)
PROC: 0BH17EZ Insertion of Endotracheal Airway into Trachea, Via Natural or Artificial Opening (ICD-10-PCS; 2020-03-02)
PROC: 5A09357 Assistance with Respiratory Ventilation, Less than 24 Consecutive Hours, Continuous Positive Airway Pressure (ICD-10-PCS; 2020-03-02)
PROC: XW033E5 Introduction of Remdesivir Anti-infective into Peripheral Vein, Percutaneous Approach, New Technology Group 5 (ICD-10-PCS; 2020-03-06)
PROC: 5A09357 Assistance with Respiratory Ventilation, Less than 24 Consecutive Hours, Continuous Positive Airway Pressure (ICD-10-PCS; 2020-03-07)
PROC: 5A09357 Assistance with Respiratory Ventilation, Less than 24 Consecutive Hours, Continuous Positive Airway Pressure (ICD-10-PCS; 2020-03-08)
PROC: 03HY32Z Insertion of Monitoring Device into Upper Artery, Percutaneous Approach (ICD-10-PCS; 2020-03-09)
PROC: 4A133B1 Monitoring of Arterial Pressure, Peripheral, Percutaneous Approach (ICD-10-PCS; 2020-03-09)
PROC: 4A133J1 Monitoring of Arterial Pulse, Peripheral, Percutaneous Approach (ICD-10-PCS; 2020-03-09)
PROC: 5A09357 Assistance with Respiratory Ventilation, Less than 24 Consecutive Hours, Continuous Positive Airway Pressure (ICD-10-PCS; 2020-03-09)
PROC: 0BH17EZ Insertion of Endotracheal Airway into Trachea, Via Natural or Artificial Opening (ICD-10-PCS; 2020-03-10)
PROC: 5A1955Z Respiratory Ventilation, Greater than 96 Consecutive Hours (ICD-10-PCS; 2020-03-10)
PROC: 02HV33Z Insertion of Infusion Device into Superior Vena Cava, Percutaneous Approach (ICD-10-PCS; 2020-03-12)
PROC: B548ZZA Ultrasonography of Superior Vena Cava, Guidance (ICD-10-PCS; 2020-03-12)
PROC: 0BC98ZZ Extirpation of Matter from Lingula Bronchus, Via Natural or Artificial Opening Endoscopic (ICD-10-PCS; 2020-03-13)
PROC: 0BC48ZZ Extirpation of Matter from Right Upper Lobe Bronchus, Via Natural or Artificial Opening Endoscopic (ICD-10-PCS; 2020-03-13)
PROC: 0BC88ZZ Extirpation of Matter from Left Upper Lobe Bronchus, Via Natural or Artificial Opening Endoscopic (ICD-10-PCS; 2020-03-13)
PROC: 0BC58ZZ Extirpation of Matter from Right Middle Lobe Bronchus, Via Natural or Artificial Opening Endoscopic (ICD-10-PCS; 2020-03-13)
PROC: 0BC38ZZ Extirpation of Matter from Right Main Bronchus, Via Natural or Artificial Opening Endoscopic (ICD-10-PCS; 2020-03-13)
PROC: 0BC78ZZ Extirpation of Matter from Left Main Bronchus, Via Natural or Artificial Opening Endoscopic (ICD-10-PCS; 2020-03-13)
PROC: 0BC68ZZ Extirpation of Matter from Right Lower Lobe Bronchus, Via Natural or Artificial Opening Endoscopic (ICD-10-PCS; 2020-03-13)
PROC: 0BCB8ZZ Extirpation of Matter from Left Lower Lobe Bronchus, Via Natural or Artificial Opening Endoscopic (ICD-10-PCS; 2020-03-13)
PROC: 0BC18ZZ Extirpation of Matter from Trachea, Via Natural or Artificial Opening Endoscopic (ICD-10-PCS; 2020-03-13)
PROC: 5A09357 Assistance with Respiratory Ventilation, Less than 24 Consecutive Hours, Continuous Positive Airway Pressure (ICD-10-PCS; 2020-03-15)
PROC: 03HY32Z Insertion of Monitoring Device into Upper Artery, Percutaneous Approach (ICD-10-PCS; principal; 2020-03-16)
PROC: 4A133B1 Monitoring of Arterial Pressure, Peripheral, Percutaneous Approach (ICD-10-PCS; 2020-03-16)
PROC: 4A133J1 Monitoring of Arterial Pulse, Peripheral, Percutaneous Approach (ICD-10-PCS; 2020-03-16)
PROC: 5A09357 Assistance with Respiratory Ventilation, Less than 24 Consecutive Hours, Continuous Positive Airway Pressure (ICD-10-PCS; 2020-03-16)
PROC: 30233N1 Transfusion of Nonautologous Red Blood Cells into Peripheral Vein, Percutaneous Approach (ICD-10-PCS; 2020-03-16)
PROC: 5A09357 Assistance with Respiratory Ventilation, Less than 24 Consecutive Hours, Continuous Positive Airway Pressure (ICD-10-PCS; 2020-03-17)
PROC: 5A09357 Assistance with Respiratory Ventilation, Less than 24 Consecutive Hours, Continuous Positive Airway Pressure (ICD-10-PCS; 2020-03-18)
DX: A41.9 Sepsis, unspecified organism (principal); R65.21 Severe sepsis with septic shock; U07.1 COVID-19; G93.41 Metabolic encephalopathy; J96.22 Acute and chronic respiratory failure with hypercapnia; N17.0 Acute kidney failure with tubular necrosis; E43 Unspecified severe protein-calorie malnutrition; J12.82 Pneumonia due to coronavirus disease 2019; J96.21 Acute and chronic respiratory failure with hypoxia; I21.4 Non-ST elevation (NSTEMI) myocardial infarction; J44.1 Chronic obstructive pulmonary disease with (acute) exacerbation; E44.0 Moderate protein-calorie malnutrition; F33.1 Major depressive disorder, recurrent, moderate; E87.0 Hyperosmolality and hypernatremia; E87.3 Alkalosis; D68.59 Other primary thrombophilia; Z82.49 Family history of ischemic heart disease and other diseases of the circulatory system; D53.9 Nutritional anemia, unspecified; E87.6 Hypokalemia; I48.0 Paroxysmal atrial fibrillation; E11.65 Type 2 diabetes mellitus with hyperglycemia; E11.22 Type 2 diabetes mellitus with diabetic chronic kidney disease; I12.9 Hypertensive chronic kidney disease with stage 1 through stage 4 chronic kidney disease, or unspecified chronic kidney disease; N18.9 Chronic kidney disease, unspecified; Z66 Do not resuscitate; Z51.5 Encounter for palliative care; Z68.28 Body mass index [BMI] 28.0-28.9, adult; Z99.81 Dependence on supplemental oxygen; Z91.19 Patient's noncompliance with other medical treatment and regimen; Z79.01 Long term (current) use of anticoagulants

== ENCOUNTER 2020-03-18 21:21 | Inpatient (IN) | payer OTHER, MEDICARE, MEDICAID ==
[~2020-03-18] VITALS: Ht 177.8 cm; Wt 88.9 kg
[~2020-03-18 21:21] MED LIST changes: +ATROVENT HFA12.9 GM INH
[2020-03-18 21:30] VITALS: BP 91/46
--- NOTE | 2020-03-18 21:33 | NUR ---
Time: 2129 A 55 year old MALE admitted to under services of MARY ELLEN AYALA DO. Chief complaint: [facility]. APRIL JACOBSON
--- NOTE | 2020-03-18 23:36 | NUR ---
2200: PATIIENT REMOVED FROM BIPAP, AND PLACED ON 15 L NON REBREATHER. RN AWARE.
--- NOTE | 2020-03-18 23:54 | NUR ---
PATIENT HR IN THE 130'S. MEDICATED WITH IV ATIVAN AT THIS TIME. WILL CHECK EFFECTIVENESS.
[2020-03-19 05:31] VITALS: BP 72/36
[2020-03-19 12:00] VITALS: BP 46/21
--- NOTE | 2020-03-19 17:12 | NUR ---
PT MEDICATED WITH PRN ATIVAN FOR INCREASE IN MOVEMENT AND INCREASED RESPIRATIONS. WILL MONITOR.
--- NOTE | 2020-03-19 17:27 | NUR ---
MORPHINE GTT CHANGED OVER TO NEW BAG AT THIS TIME. WASTE INTO WALL DISPENSER, WITNESSED AND SIGNED WITH CAROL CULVER RN.
--- NOTE | 2020-03-19 18:00 | NUR ---
PT RESTING IN BED. CALM AT THIS TIME. WILL CONTINUE TO MONITOR.
[2020-03-20] VITALS: BP 53/35
[2020-03-20 08:00] VITALS: BP 56/34
--- NOTE | 2020-03-20 10:54 | NUR ---
Pt. is [facility] with [facility].
[2020-03-20 12:00] VITALS: BP 108/91
--- NOTE | 2020-03-20 12:00 | NUR ---
UPDATED DAUGHTER ON CONDITION.
[2020-03-20 16:00] VITALS: BP 40/18
--- NOTE | 2020-03-20 19:25 | NUR ---
SPOKE WITH DAUGHTER AGAIN AND UPDATED NO CHANGE IN CONDITION.
[2020-03-20 20:00] VITALS: BP 44/31
--- NOTE | 2020-03-20 20:55 | NUR ---
PATIENT AT THIS TIME. VERIFIED BY THIS RN AND RN, BRAN MARROQUIN.
--- NOTE | 2020-03-20 21:00 | NUR ---
NOTIFIED DR. MORALEZ THAT PATIENT HAS . PER DR. MORALEZ, DR ALARCON TO SIGN THE CERTIFICATE. CRIB CLERK ALSO MADE AWARE.
--- NOTE | 2020-03-20 21:10 | NUR ---
NOTIFIED ELLEN OF PATIENT PASSING AWAY. PER BRIAN ARRANGEMENTS HAVE BEEN MADE WITH [facility] IN [place].
--- NOTE | 2020-03-20 21:15 | NUR ---
CALL MADE TO ONE CALL. PER JULIAN MANCIA TO RELEASE BODY. REFERENCE NUMBER [id number].
--- NOTE | 2020-03-20 22:55 | NUR ---
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 PATIENT HAS NO BELONGINGS HERE WITH HIM.
== END 2020-03-20 23:12 | disposition expired | DRG 871 ==
LOC: 4E 21:21
PROVIDERS: ADMIT Internal Medicine; ATTEND Internal Medicine
PROC: 5A09357 Assistance with Respiratory Ventilation, Less than 24 Consecutive Hours, Continuous Positive Airway Pressure (ICD-10-PCS; principal; 2020-03-18)
DX: A41.9 Sepsis, unspecified organism (principal); U07.1 COVID-19; J96.20 Acute and chronic respiratory failure, unspecified whether with hypoxia or hypercapnia; N17.0 Acute kidney failure with tubular necrosis; G93.41 Metabolic encephalopathy; E43 Unspecified severe protein-calorie malnutrition; Z51.5 Encounter for palliative care; J41.1 Mucopurulent chronic bronchitis; Z68.28 Body mass index [BMI] 28.0-28.9, adult